=== PATIENT | female | born 1935 | race Caucasian/White ===

== ENCOUNTER 2019-03-23 15:30 | Outpatient (CLI) | payer MEDICARE, OTHER | END 2019-03-23 23:59 | disposition home or self-care (01) | LOC: MSC 15:30 | PROVIDERS: ATTEND Anesthesiology | DX: M79.7 Fibromyalgia (principal); M54.5 Low back pain; M62.830 Muscle spasm of back; M79.2 Neuralgia and neuritis, unspecified; F11.20 Opioid dependence, uncomplicated; G20 Parkinson's disease; Z79.52 Long term (current) use of systemic steroids; Z79.899 Other long term (current) drug therapy ==

== ENCOUNTER 2019-04-06 14:45 | Outpatient (CLI) | payer MEDICARE, OTHER | END 2019-04-06 23:59 | disposition home or self-care (01) | LOC: MSC 14:45 | PROVIDERS: ATTEND Anesthesiology | DX: M54.5 Low back pain (principal); M79.7 Fibromyalgia; G89.29 Other chronic pain; M62.830 Muscle spasm of back; M79.2 Neuralgia and neuritis, unspecified; F11.20 Opioid dependence, uncomplicated; Z79.84 Long term (current) use of oral hypoglycemic drugs; Z79.899 Other long term (current) drug therapy; Z90.710 Acquired absence of both cervix and uterus ==

== ENCOUNTER 2019-05-04 13:45 | Outpatient (CLI) | payer MEDICARE, OTHER | END 2019-05-04 23:59 | disposition home or self-care (01) | LOC: MSC 13:45 | PROVIDERS: ATTEND Anesthesiology | DX: M54.5 Low back pain (principal); M79.7 Fibromyalgia; M62.830 Muscle spasm of back; M79.2 Neuralgia and neuritis, unspecified; F11.20 Opioid dependence, uncomplicated; I10 Essential (primary) hypertension; E27.40 Unspecified adrenocortical insufficiency; Z79.899 Other long term (current) drug therapy ==

== ENCOUNTER 2019-05-30 16:26 | Inpatient (IN) | payer MEDICARE, OTHER ==
[~2019-05-30] VITALS: Ht 165.1 cm; Wt 55.5 kg
--- NOTE | 2019-05-30 06:48 | NUR ---
MS YAZMIN NOTES RECEIVED PATIENT AWAKE IN BED WITH NO DISTRESS NOTED. CALL LIGHT WITHIN REACH. SON AT BEDSIDE. PATIENT NOTED WITH GENERALIZED BODY PAIN, PRN NORCO 5/325 GIVEN. WILL CONTINUE TO MONITOR FOR EFFECTIVENESS. PERIPHERAL LINE INTACT AND PATENT. SKIN ASSESSMENT AND PICTURES TAKEN. VITALS WNL. BED IN LOW LOCK SETTING. BED ALARM ON AND FUNCTIONING PROPERLY. ROOM FREE OF CLUTTER AND BELONGINGS KEPT NEAR BEDSIDE. WILL CONTINUE TO MONITOR. Addendum: 05/31/19 at 0654 by FLORES BELLE RN ERROR ENTRY
--- NOTE | 2019-05-30 16:45 | NUR ---
"BIB son to waiting area and left. Pt states"this is nothing new. Pain"+rash on RLE" pt aaox4, -sob, nadn oted, vss, pending md tinsley
--- NOTE | 2019-05-30 17:24 | NUR ---
CALLED NURSING SUP FOR MED/SURG BED.
--- NOTE | 2019-05-30 17:25 | NUR ---
PAGED [facility].
[2019-05-30] MEDS ORDERED: MORPHINE SULFATE INJ 2 MG/ML DISP.SYRIN IV ONE (17:30)
[2019-05-30] MEDS ORDERED: IV NS 0.9% 1,000 ML BAG IV ONE (17:30)
[2019-05-30] MEDS ORDERED: PIPERACILLIN /TAZOBACTAM 3.375 G in IV D5W 50 ML IV ONE (17:30)
[2019-05-30] MEDS ORDERED: ONDANSETRON HCL/PF 4 MG/2 ML VIAL IVP ONE (17:30)
[2019-05-30] MEDS ORDERED: VANCOMYCIN 1 GM in IV D5W 250 ML IV ONE (17:30)
[2019-05-30 17:31] LABS: BASOPHILS # (AUTO) 0.1 /CMM (0.0-0.2); BASOPHILS % (AUTO) 1.3 % (0.0-2.0); EOSINOPHILS % (AUTO) 0.6 % (0.0-6.0); HEMATOCRIT 38 % (33-45); HEMOGLOBIN 12.2 g/dL (11.5-14.8); LYMPHOCYTES % (AUTO) 13.3 % (20.0-44.0); MEAN CORPUSCULAR HGB CONC 32 g/dl (31.0-36.0); MEAN CORPUSCULAR VOLUME 77 fL (82-100); MONOCYTES # (AUTO) 0.6 /CMM (0.1-1.30); MONOCYTES % (AUTO) 8.2 % (2.0-12.0); NEUTROPHILS # (AUTO) 5.9 /CMM (1.8-8.9); NEUTROPHILS % (AUTO) 76.6 % (43.0-81.0); PLATELET COUNT (AUTO) 195 /CMM (150-450); WHITE BLOOD COUNT (AUTO) 7.7 K/uL (4.3-11.0)
[2019-05-30] MEDS ORDERED: ALPR0.5T8 PO (17:38)
[2019-05-30] MEDS ORDERED: ONDA8TAB12 PO (17:38)
[2019-05-30] MEDS ORDERED: HYDR-3802 PO (17:38)
[2019-05-30] MEDS ORDERED: DOCU-270 PO (17:38)
[2019-05-30] MEDS ORDERED: CARB1TAB24 PO (17:38)
[2019-05-30] MEDS ORDERED: SENN-175 PO (17:38)
[2019-05-30] MEDS ORDERED: AMLO5TAB9 PO (17:38)
[2019-05-30] MEDS ORDERED: NALO25TA PO (17:38)
[2019-05-30] MEDS ORDERED: HYDR-3973 PO (17:38)
[2019-05-30] MEDS ORDERED: CLON0.1T PO (17:38)
[2019-05-30] MEDS ORDERED: OMEP40CA13 PO (17:38)
[2019-05-30] MEDS ORDERED: GABA600T12 PO (17:38)
[2019-05-30] MEDS ORDERED: PREG50CA64 PO (17:39)
[2019-05-30 17:43] LABS: CALCIUM, SERUM 8.7 mg/dL (8.5-10.1); CARBON DIOXIDE 29 mmol/L (21-32); CHLORIDE 100 mmol/L (98-107); CREATININE 0.8 mg/dL (0.6-1.3); GLUCOSE 109 mg/dL (74-106); POTASSIUM 4.5 mmol/L (3.5-5.1); SODIUM SERUM 136 mmol/L (136-145); UREA NITROGEN, BLOOD 21 mg/dL (7-18)
[2019-05-30 17:48] LABS: ALANINE AMINOTRANSFERASE 6 U/L (12-78); ALBUMIN 3.3 g/dL (3.4-5.0); ALKALINE PHOSPHATASE 85 U/L (46-116); ASPARTATE AMINOTRANSFERASE 17 U/L (15-37); BILIRUBIN,DIRECT 0.1 mg/dL (0.0-0.2); BILIRUBIN,TOTAL 0.3 mg/dL (0.2-1.0); TOTAL PROTEIN, SERUM 6.8 g/dL (6.4-8.2)
--- NOTE | 2019-05-30 17:49 | NUR ---
JESSICA CALLED FOR LARRY.
[2019-05-30] MEDS ORDERED: ONDANSETRON HCL/PF 4 MG/2 ML VIAL ONE (17:56)
[2019-05-30] MEDS ORDERED: MORPHINE SULFATE INJ 4 MG/ML DISP.SYRIN ONE (17:56)
[2019-05-30] MEDS ORDERED: MAG HYDROX/AL HYDROX/SIMETH 30 ML UDC PO PRN (18:00)
[2019-05-30] MEDS ORDERED: Z GUARD REMEDY 2 OZ OINT TP PRN (18:00)
[2019-05-30] MEDS ORDERED: CLONIDINE HCL 0.1 MG TABLET PO PRN (18:00)
[2019-05-30] MEDS ORDERED: ZOLPIDEM TARTRATE 5 MG TABLET PO PRN (18:00)
[2019-05-30] MEDS ORDERED: ACETAMINOPHEN 325 MG TABLET PO PRN (18:00)
--- NOTE | 2019-05-30 18:08 | NUR ---
CORRECTION PT GOING TO MED/SURG BED 327-2.
--- NOTE | 2019-05-30 18:25 | NUR ---
report given to devang li for ramiro pt will be transported to 3rd floor
[2019-05-30] MEDS ORDERED: ONDANSETRON 4 MG TAB.RAPDIS PO PRN (18:30)
[2019-05-30 18:37] LABS: APPEARANCE,URINE Clear (CLEAR); BILIRUBIN,URINE Negative (NEGATIVE); BLOOD, URINE Trace-intact Ery/uL (NEGATIVE); COLOR,URINE Yellow (YELLOW); KETONES,URINE Negative (NEGATIVE); LEUKOCYTE ESTERASE ,URINE Negative (NEGATIVE); NITRITE, URINE Negative (NEGATIVE); PROTEIN,URINE Negative (NEGATIVE); UGLUCOSE Negative (NEGATIVE); UROBILINOGEN,URINE 0.2 EU/dL (0.2)
[2019-05-30 18:44] LABS: BACTERIA,URINE Few /HPF (None Seen); RBC,URINE 0-2 /HPF (0-2); SQUAMOUS EPITHELIAL CELL,UR Few /HPF (None Seen); WBC,URINE 0-2 /HPF (0-3)
--- NOTE | 2019-05-30 18:50 | NUR ---
M/S RN NOTES PATIENT RECEIVED WITH NO ACUTE DISTRESS, WILL ENDORSE TO ONCOMING NURSE FOR ADMISSION.
[2019-05-30 20:00] VITALS: BP 147/76
[2019-05-30] MEDS ORDERED: CLINDAMYCIN IV RTU IN D5W 900 MG/50 ML PIGGYBACK IV SCH (20:00)
--- NOTE | 2019-05-30 20:00 | NUR ---
MS RN NOTES RECEIVED PATIENT AWAKE IN BED WITH NO DISTRESS NOTED. CALL LIGHT WITHIN REACH. SON AT BEDSIDE. PATIENT NOTED WITH GENERALIZED BODY PAIN, PRN NORCO 5/325 GIVEN. WILL CONTINUE TO MONITOR FOR EFFECTIVENESS. PERIPHERAL LINE INTACT AND PATENT. SKIN ASSESSMENT AND PICTURES TAKEN. VITALS WNL. BED IN LOW LOCK SETTING. BED ALARM ON AND FUNCTIONING PROPERLY. ROOM FREE OF CLUTTER AND BELONGINGS KEPT NEAR BEDSIDE. WILL CONTINUE TO MONITOR.
[2019-05-30] MEDS: PREGABALIN 25 MG CAPSULE PO SCH (21:32)
[2019-05-30] MEDS: SENNOSIDES 8.6 MG TABLET PO SCH (21:33)
[2019-05-30] MEDS: GABAPENTIN 300 MG CAPSULE PO SCH (21:33)
[2019-05-30] MEDS: HYDROCODONE/APAP 5/325MG 1 EACH TABLET PO PRN (21:33)
[2019-05-30] MEDS: CLINDAMYCIN 900 MG in IV D5W 50 ML IV SCH (21:34)
[2019-05-30] MEDS: ALPRAZOLAM 0.5 MG TABLET PO PRN (23:04)
[2019-05-31] MEDS: HYDROCODONE/APAP 5/325MG 1 EACH TABLET PO PRN ×5 (03:00→23:49)
[2019-05-31] MEDS: CLINDAMYCIN 900 MG in IV D5W 50 ML IV SCH ×3 (05:20→21:34)
--- NOTE | 2019-05-31 06:47 | NUR ---
MS RN NOTES PATIENT ASLEEP IN BED WITH NO DISTRESS NOTED. CALL LIGHT WITHIN REACH. ALL DUE MEDS GIVEN ORDERED WITH NO ASE. NO FURTHER C/O PAIN OR DISCOMFORT. PERIPHERAL LINE INTACT AND PATENT. BED IN LOW LOCK SETTING. ALL BELONGINGS NEAR BEDSIDE. WILL ENDORSE TO ONCOMING SHIFT.
[2019-05-31 07:00] VITALS: BP 136/79
--- NOTE | 2019-05-31 07:26 | NUR ---
RN OPENING NOTE PT WAS RECEIVED ASLEEP IN BED AT LOWEST AND LOCKED POSITION WITH SIDE RAILS UP X2, PER NIGHT RN PT IS A/O X4, BREATHING EVEN AND UNLABORED ON RA WITH NO S/S OF ANY DISTRESS OR PAIN AT THIS TIME, NOTED TO HAVE SOME SUPRAPUBIC REDNESS WITH SWELLING, IV IS PATENT AND INTACT, SAFETY PRECAUTIONS IN PLACE, CALL LIGHT WITHIN REACH, WILL MONITOR PT ACCORDINGLY
[2019-05-31 07:57] LABS: CALCIUM, SERUM 8.1 mg/dL (8.5-10.1); CREATININE 0.7 mg/dL (0.6-1.3); MAGNESIUM 1.9 mg/dL (1.8-2.4); PHOSPHORUS 4.8 mg/dL (2.5-4.9); POTASSIUM 3.8 mmol/L (3.5-5.1)
[2019-05-31] MEDS: GABAPENTIN 300 MG CAPSULE PO SCH ×3 (08:10→16:18)
[2019-05-31] MEDS: PREGABALIN 25 MG CAPSULE PO SCH ×2 (08:10→16:18)
[2019-05-31] MEDS: AMLODIPINE BESYLATE 5 MG TABLET PO SCH (08:11)
[2019-05-31] MEDS: DOCUSATE SODIUM 100 MG CAPSULE PO SCH ×2 (08:11→16:18)
[2019-05-31] MEDS: HYDROCORTISONE 5 MG TABLET PO SCH ×2 (08:11→16:18)
[2019-05-31] MEDS: CARBIDOPA/LEVODOPA 25/250 MG 1 UDTAB PO SCH ×3 (08:11→16:18)
[2019-05-31] MEDS: PANTOPRAZOLE 40 MG TABLET.DR PO SCH (08:11)
[2019-05-31 08:23] LABS: BASOPHILS % (AUTO) 0.2 % (0.0-2.0); EOSINOPHILS % (AUTO) 1.1 % (0.0-6.0); HEMATOCRIT 35 % (33-45); HEMOGLOBIN 11.2 g/dL (11.5-14.8); LYMPHOCYTES # (AUTO) 0.9 /CMM (0.8-4.8); MEAN CORPUSCULAR HGB CONC 32 g/dl (31.0-36.0); MEAN CORPUSCULAR VOLUME 77 fL (82-100); MONOCYTES # (AUTO) 0.5 /CMM (0.1-1.30); NEUTROPHILS % (AUTO) 76.7 % (43.0-81.0); PLATELET COUNT (AUTO) 178 /CMM (150-450); RED BLOOD CELL COUNT(AUTO) 4.56 MIL/uL (4.0-5.2); WHITE BLOOD COUNT (AUTO) 6.5 K/uL (4.3-11.0)
[2019-05-31] MEDS ORDERED: NALOXEGOL OXALATE PO SCH (09:00)
[2019-05-31] MEDS ORDERED: HYDROCORTISONE 10 MG TABLET PO SCH (09:00)
--- NOTE | 2019-05-31 10:58 | NUR ---
RN NOTE SON CALLED REGARDING HOME MED [facility] THAT NEEDS TO BE BROUGHT, PER SON HIS MOTHER ONLY TAKES THAT MED NEEDED AND THAT HE WILL SEE IF HE CAN FIND IT AND BRING IT IN. PHARMACY INFORMED
[2019-05-31] MEDS: ONDANSETRON HCL/PF 4 MG/2 ML VIAL IVP PRN (15:25)
[2019-05-31 16:09] VITALS: BP 133/75
--- NOTE | 2019-05-31 18:39 | NUR ---
RN CLOSING NOTE PT IN BED AT LOWEST AND LOCKED POSITION WITH SIDE RAILS UP X2, A/O X4 BREATHING EVEN AND UNLABORED ON RA WITH NO S/S OF ANY DISTRESS OR PAIN, IV IS PATENT AND INTACT, SAFETY PRECAUTIONS IN PLACE, CALL LIGHT WITHIN REACH, ALL NEEDS ATTENDED TO, WILL ENDORSE TO NIGHT RN FOR BRITTNEE.
[2019-05-31 20:00] VITALS: BP 119/69
[2019-05-31] MEDS: SENNOSIDES 8.6 MG TABLET PO SCH (20:09)
[2019-05-31] MEDS: ALPRAZOLAM 0.5 MG TABLET PO PRN (20:09)
--- NOTE | 2019-05-31 20:16 | NUR ---
recieved pt in room in bed calm; Pt c/o of pain 03/27; Pt begins to moan; Cary 5-325 Prn 1 tab given pt tolerates well; Pt becomes very upset and begins to yell uncontrollable about pain medicine given late; No schedule med due at this time; To help patient calm down; water given; jello given; Xanax 0.5mg PRN Anxiety given; Senokot 2 tabs 17.6 mg scheduled med for HS given Patient has reported decrease in pain level cannot specify number Son at bedside
[2019-05-31] MEDS: MAGNESIUM HYDROXIDE 30 ML UDC PO PRN (22:57)
[2019-06-01] MEDS: CLINDAMYCIN 900 MG in IV D5W 50 ML IV SCH ×3 (04:08→20:26)
[2019-06-01] MEDS: HYDROCODONE/APAP 5/325MG 1 EACH TABLET PO PRN ×2 (04:13→08:38)
[2019-06-01] MEDS: ALPRAZOLAM 0.5 MG TABLET PO PRN ×3 (04:44→20:35)
[2019-06-01 07:12] LABS: BASOPHILS % (AUTO) 0.4 % (0.0-2.0); EOSINOPHILS % (AUTO) 1.7 % (0.0-6.0); HEMATOCRIT 36 % (33-45); HEMOGLOBIN 11.5 g/dL (11.5-14.8); LYMPHOCYTES # (AUTO) 1.4 /CMM (0.8-4.8); LYMPHOCYTES % (AUTO) 29.8 % (20.0-44.0); MEAN CORPUSCULAR HGB CONC 32 g/dl (31.0-36.0); MEAN CORPUSCULAR VOLUME 76 fL (82-100); MONOCYTES # (AUTO) 0.5 /CMM (0.1-1.30); MONOCYTES % (AUTO) 9.9 % (2.0-12.0); NEUTROPHILS # (AUTO) 2.8 /CMM (1.8-8.9); NEUTROPHILS % (AUTO) 58.2 % (43.0-81.0); PLATELET COUNT (AUTO) 165 /CMM (150-450); RED BLOOD CELL COUNT(AUTO) 4.67 MIL/uL (4.0-5.2); WHITE BLOOD COUNT (AUTO) 4.8 K/uL (4.3-11.0)
[2019-06-01 07:20] LABS: CALCIUM, SERUM 8.1 mg/dL (8.5-10.1); CREATININE 0.8 mg/dL (0.6-1.3); POTASSIUM 4.2 mmol/L (3.5-5.1)
[2019-06-01 08:00] VITALS: BP 152/76
--- NOTE | 2019-06-01 08:00 | NUR ---
SUPPLY MANAGER OPENING NOTE PT WAS RECEIVED AWAKE IN BED AT LOWEST AND LOCKED POSITION WITH SIDE RAILS UP X2, PT IS A/O X4, BREATHING EVEN AND UNLABORED ON RA WITH NO S/S OF ANY DISTRESS WITH C/O SUPRAPUBIC PAIN -PAIN MGT PRN GIVEN.NOTED TO HAVE SOME SUPRAPUBIC REDNESS WITH SWELLING, IV IS PATENT AND INTACT, SAFETY PRECAUTIONS IN PLACE, CALL LIGHT WITHIN REACH, WILL MONITOR PT ACCORDINGLY
[2019-06-01] MEDS: DOCUSATE SODIUM 100 MG CAPSULE PO SCH ×2 (08:38→17:24)
[2019-06-01] MEDS: PREGABALIN 25 MG CAPSULE PO SCH ×2 (08:38→17:24)
[2019-06-01] MEDS: AMLODIPINE BESYLATE 5 MG TABLET PO SCH (08:39)
[2019-06-01] MEDS: CARBIDOPA/LEVODOPA 25/250 MG 1 UDTAB PO SCH ×3 (08:39→17:23)
[2019-06-01] MEDS: GABAPENTIN 300 MG CAPSULE PO SCH ×3 (08:39→17:24)
[2019-06-01] MEDS: PANTOPRAZOLE 40 MG TABLET.DR PO SCH (08:41)
[2019-06-01] MEDS: HYDROCORTISONE 5 MG TABLET PO SCH ×2 (08:43→17:32)
[2019-06-01] MEDS ORDERED: BISACODYL SUPP (10 MG) 10 MG/SUPP.RECT SUPP.RECT RC PRN (10:00)
--- NOTE | 2019-06-01 11:21 | NUR ---
WOUND CARE CONSULT: PT PRESENTS WITH RED TENDER RAISED AREA TO PUBIC REGION, PRESENT ON ADMISSION. DEFER TO MD FOR POSSIBLE SURGICAL CONSULT. RECOMMENDATIONS MADE FOR SKIN PROTECTION. [id number] WITH NURSING STAFF. WILL SEE PRN. CURRENT DARCI SCORE IS 18. Addendum: 06/01/19 at 1122 by NANCY ANAYA WNDNU Amended: Links added.
[2019-06-01] MEDS: MORPHINE SULFATE INJ 2 MG/ML DISP.SYRIN IV PRN ×2 (11:56→15:36)
[2019-06-01] MEDS ORDERED: MINERAL OIL 133 ML (PYXIS) 1 EA ENEMA RC ONE (12:00)
[2019-06-01] MEDS ORDERED: LIDOCAINE 1%-EPI 1:100,000 50 ML VIAL IJ STA (14:07)
--- NOTE | 2019-06-01 15:28 | NUR ---
SERIAL DEBRIDEMENT AND I&D OF SUPRAPUBIC WOUND DONE AT THE BEDSIDE BY HUMBERTOWOUND PA OF DR DONAVON ALEXANDER. WILL ADMINISTER PAIN MGT PRN.
[2019-06-01 16:00] VITALS: BP 136/76
[2019-06-01] MEDS: HYDROCODONE/APAP 10/325MG 1 EA TABLET PO PRN (17:25)
[2019-06-01] MEDS: MAGNESIUM HYDROXIDE 30 ML UDC PO PRN (17:32)
--- NOTE | 2019-06-01 19:19 | NUR ---
PT RESTING IN BED DENYING ANY PAIN OR DISTRESS.PAIN MGT EFFECTIVE.FLEET OIL ENEMA GIVEN DOESN'T HAVE ANY RESULT.MILK OF MAGNESIA GIVEN WELL.ENCOURAGED PT TO AMBULATE ALONG THE HALLWAY AND INCREASE FLUDI INTAKE.WARM PRUNE JUICE 2 CUPS WAS TAKEN IN THE MORNING.PT HAS POOR INTAKE BUT EATS OFTEN IN SMALL AMOUNTS.WILL MONITOR.WILL ENDORSE TO NIGHT NURSE CARE.CALL LIGHT PLACED WITHIN REACH.
--- NOTE | 2019-06-01 19:59 | NUR ---
MS/RN OPENING NOTES RECEIVED PATIENT IN BED, AWAKE, ALERT X3, ABLE TO VERBALZIE NEEDS, REQUIRE ASSISTANCE IN ALL NEEDS PATIENT JUST HAD I & D DONE. PATIENT REPORTED OR OBSERVE NO PAIN, LAST PAIN MEDICATION GIVEN 1745 BY AM RN, PATIETN REQUESTED FOR FOOD AND SNACKS, AND HAD BED BAN, WOUND DRESSING INTACT. WILL MONITOR PATIENT PAIN AND ANY CONCERN. BED LOCK, CALL LIGHTS WITHIN REACH. OFFERED AND PROVIDED FLUIDS.
[2019-06-01 20:00] VITALS: BP 115/72
[2019-06-01 20:26] VITALS: BP 115/72
--- NOTE | 2019-06-01 20:35 | NUR ---
MS/RN NOTES PATIENT REQUESTED TO HELP HER RELAX WITH NEEDED XANAX PO 0.5 MG PO. PATIENT REPORTED SHE WILL BE ABLE TO EAT AND FEEL BETTER WITH MEDICATION AND THAT SON WILL BE COMING FOR A VISIT. WILL MONITOR AND ADMINISTER MEDICATION TOLERATED.
[2019-06-01] MEDS: SENNOSIDES 8.6 MG TABLET PO SCH (21:23)
[2019-06-02] MEDS: MORPHINE SULFATE INJ 2 MG/ML DISP.SYRIN IV PRN ×2 (03:52→14:26)
--- NOTE | 2019-06-02 04:00 | NUR ---
MS/RN NOTES PATIENT WOKE UP FROM SLEEP, REPORTED PAIN OF 8/10 GENERALIZED IN WHOLE BODY, MORPHINE 2MG IVP ADMINISTERED, WOUND CARE PROVIDED, ASSISTED IN REPOSITION AND CHANGING WILL MONITOR TRLIEF OF PAIN.
[2019-06-02] MEDS: CLINDAMYCIN 900 MG in IV D5W 50 ML IV SCH ×3 (04:03→20:14)
[2019-06-02] MEDS: HYDROCODONE/APAP 10/325MG 1 EA TABLET PO PRN ×3 (05:44→15:35)
--- NOTE | 2019-06-02 05:47 | NUR ---
MS/RN NOTES PATIENT REPORTED PAIN IN HEAD, MOANING AND GRIMACE, MOUTH HURTING, REQUESTED FOR PAIN ,MEDICATION 02/24. NOCO 10-325 ,G PO GIVEN AND ABLE TO SWALLOW PILL. WILL MONITOR.
--- NOTE | 2019-06-02 06:30 | NUR ---
324-1 MS/RN NOTES PATIENT ABLE TO SLEEP DURING THE NIGHT, WITH NEEDED MEDICATION XANAX. PATIENT ABLE TO VERBALIZE NEEDS, PAIN MANAGEMENT MONITORING.WILL ENDORSE TO AM RN FOR BRITTNEE. BWD LOCKED, CALL LIGHTS WITHIN REACH.
[2019-06-02 08:00] VITALS: BP 99/65
--- NOTE | 2019-06-02 08:00 | NUR ---
MS YAZMIN AM NOTES PT WAS RECEIVED AWAKE IN BED AT LOWEST AND LOCKED POSITION WITH SIDE RAILS UP X2, PT IS A/O X4, BREATHING EVEN AND UNLABORED ON RA WITH NO S/S OF ANY DISTRESS WITH C/O SUPRAPUBIC PAIN -PAIN MGT PRN GIVEN.S/P SERIAL DEBRIDEMENT AND I&D 06/01/19 WITH DRESSING DRY AND INTACT.SUPRAPUBIC WOUND HAS MILD REDNESS AND MILD SWELLING NOTED.ON IV ATB THERAPY. IV IS PATENT AND INTACT, PT MADE SOFT BOWEL MOVEMENT IN THE BEDPAN. GOOD PERICARE RENDERED.SAFETY PRECAUTIONS IN PLACE, CALL LIGHT WITHIN REACH, WILL MONITOR PT ACCORDINGLY
[2019-06-02] MEDS: PREGABALIN 25 MG CAPSULE PO SCH ×2 (09:08→16:18)
[2019-06-02] MEDS: CARBIDOPA/LEVODOPA 25/250 MG 1 UDTAB PO SCH ×3 (09:08→16:17)
[2019-06-02] MEDS: DOCUSATE SODIUM 100 MG CAPSULE PO SCH ×2 (09:10→16:18)
[2019-06-02] MEDS: AMLODIPINE BESYLATE 5 MG TABLET PO SCH (09:10)
[2019-06-02] MEDS: HYDROCORTISONE 5 MG TABLET PO SCH ×2 (09:14→16:18)
[2019-06-02] MEDS: GABAPENTIN 300 MG CAPSULE PO SCH ×3 (09:15→16:17)
[2019-06-02] MEDS: PANTOPRAZOLE 40 MG TABLET.DR PO SCH (09:15)
[2019-06-02 12:00] VITALS: BP 103/74
--- NOTE | 2019-06-02 12:00 | NUR ---
patient is alert oriented x4. pain mgmt effective, no signs of distress. BP 103/74 HR 75
[2019-06-02] MEDS: ONDANSETRON HCL/PF 4 MG/2 ML VIAL IVP PRN (14:46)
[2019-06-02] MEDS: ALPRAZOLAM 0.5 MG TABLET PO PRN (15:35)
[2019-06-02 16:00] VITALS: BP 145/73
--- NOTE | 2019-06-02 19:11 | NUR ---
PT RESTING IN BED DENYING ANY PAIN OR DISTRESS.CALL LIGHT PLACED WITHIN REACH.
--- NOTE | 2019-06-02 19:56 | NUR ---
MS/RN OPENING NOTES RECEIVED PATIENT IN BED, AWAKE, ALERT, BEING ASSISTED WITH A WALKER TO BATHROOM, ABLE TO VERBALIZE NEEDS, AND REPORTED WANTED TO EAT SOME SNACKS, PROVIDED FOOD. ABLE TO TOLERATE FLUIDS AND FOOD. DENIES PAIN AT THIS TIME, SELF MOTIVATED. BED LOCKED, CALL LIGHTS WITHIN REACH, WILL MONITOR.
[2019-06-02 20:00] VITALS: BP_SYST 120; BP_SYST 96; BP_DIAS 51; BP_DIAS 92
--- NOTE | 2019-06-02 20:05 | NUR ---
MS/RN NOTES] PATIENT WOUND SITE ON SUPRAPUBIC WITH REDNESS AND SWELLING, DRESSING INTACT,RESPIRATIONS EVEN AND UNLABORED, NO PAIN REPORTED, REPORTED RELIEF.WILL MONITOR.
[2019-06-02] MEDS: SENNOSIDES 8.6 MG TABLET PO SCH (22:06)
--- NOTE | 2019-06-03 02:39 | NUR ---
MS/RN NOTES MD LANTIGUA WAS INFORMED REGARDING WOUND CULTURE RECEIVED RESULT COMMUNICATED WITH FEW POSITIVE GRAM, COCCI AND RARE WBC SEEM MADE AWARE THAT PATIENT IS ON ANTIBIOTIC THERAPY.
[2019-06-03] MEDS: CLINDAMYCIN 900 MG in IV D5W 50 ML IV SCH (04:00)
[2019-06-03] MEDS: HYDROCODONE/APAP 10/325MG 1 EA TABLET PO PRN ×3 (04:11→13:39)
--- NOTE | 2019-06-03 06:16 | NUR ---
324-1 MS/RN NOTES PATIENT ABLE TO SLEEP DURING THE NIGHT, PAIN MANAGEMENT MONITORED, RESPIRATIONS EVEN AND UNLABORED , ALERT, ORIENTED X3. BED LOCKED, CALL LKGHTS WITHIN REACH. PROVIDED SNACKS. WILL ENDORSE TO AM RN FOR BRITTNEE. MID ABDOMEN DRESSING CHANGE, OBSERVE REDNESS AND SWELLING ON SUPRAPUBIC AREAS.
[2019-06-03] MEDS: PANTOPRAZOLE 40 MG TABLET.DR PO SCH (06:53)
[2019-06-03] MEDS: MORPHINE SULFATE INJ 2 MG/ML DISP.SYRIN IV PRN (06:55)
--- NOTE | 2019-06-03 06:58 | NUR ---
MS/RN NOTES PATIENT REPORTED PAIN WITH GUARDING AND GRIMACE, 8/10 PAIN REPORTED IN NECK ARM AND WILL MONITOR FOR RELIEF.
[2019-06-03 08:00] VITALS: BP 151/92
[2019-06-03] MEDS: GABAPENTIN 300 MG CAPSULE PO SCH ×2 (08:54→13:39)
[2019-06-03] MEDS: DOCUSATE SODIUM 100 MG CAPSULE PO SCH (08:54)
[2019-06-03] MEDS: HYDROCORTISONE 5 MG TABLET PO SCH (08:54)
[2019-06-03 08:55] VITALS: BP 151/92
[2019-06-03] MEDS: CARBIDOPA/LEVODOPA 25/250 MG 1 UDTAB PO SCH ×2 (08:55→13:39)
[2019-06-03] MEDS: AMLODIPINE BESYLATE 5 MG TABLET PO SCH (08:55)
[2019-06-03] MEDS: ALPRAZOLAM 0.5 MG TABLET PO PRN (08:56)
[2019-06-03] MEDS: PREGABALIN 25 MG CAPSULE PO SCH (08:56)
--- NOTE | 2019-06-03 13:48 | NUR ---
DISCHARGE PT TO [facility] VIA AMBULANCE WITH STABLE V/S.IV H/L TO RT AC REMAINS INTACT PER REQUEST OF YAZMIN HARDIN OF [facility].REPORT CALLED IN TO YAZMIN HARDIN OF [facility].WOUND DRESSING CHANGE DONE TO SUPRAPUBIC WOUND.SEEN BY NUZHAT PAUL.DENIES ANY PAIN OR DISTRESS.WILL CONTINUE CLINDAMYCIN PO QID FOR 7 DAYS IN THE SNF.INSTRUCTED LASHAWN TO DO WOUND TX 3X A DAY.
[2019-06-06] MEDS ORDERED: HYDR-4384 PO (11:09)
== END 2019-06-03 13:40 | DRG 572 ==
LOC: ER 16:33 → MED 18:12
PROVIDERS: ADMIT Family Medicine; ATTEND Nurse Practitioner Acute Care
PROC: 0JBC0ZZ Excision of Pelvic Region Subcutaneous Tissue and Fascia, Open Approach (ICD-10-PCS; principal; 2019-06-01)
DX: L03.818 Cellulitis of other sites (principal); I10 Essential (primary) hypertension; G89.29 Other chronic pain; G20 Parkinson's disease; Z87.11 Personal history of peptic ulcer disease; M19.90 Unspecified osteoarthritis, unspecified site; Z79.899 Other long term (current) drug therapy; Z83.3 Family history of diabetes mellitus
CPT/HCPCS: 36415; 71045-TC; 80048-TC; 80061-TC; 80076-TC; 81000-TC; 83605-TC; 83735-TC; 84100-TC; 84484-TC; 85025-TC; 85730-TC; 87040-TC; 87070-TC; 87081-TC; 87086-TC; 97116-TC; 97530-TC; A6253; A6407; G0378; J2270; J2405; J2543; J3370; J3490; J7050; J7060

== ENCOUNTER 2019-06-03 21:24 | Emergency (ER) | payer MEDICARE, OTHER ==
[~2019-06-03] VITALS: Ht 162.6 cm; Wt 78.9 kg
[~2019-06-03 21:24] MED LIST: ALPR0.5T8 PO; AMLO5TAB9 PO; CARB1TAB24 PO; CLON0.1T PO; DOCU-270 PO; GABA600T12 PO; HYDR-3802 PO; HYDR-3973 PO; NALO25TA PO; OMEP40CA37 PO; ONDA8TAB12 PO; PREG50CA64 PO; SENN-175 PO
--- NOTE | 2019-06-03 21:35 | NUR ---
PT BIBPA. PT C/O SUPRAPUBIC CELLULITIS PAIN AND R SIDED BREAST PAIN. REDNESS NOTED ON PUBIC AREA. PT RECENTLY ADMITTED AND DISCHARGED FROM [facility] ON 06/03/19. PT IS AWAKE, PLACED ON CONTINIOUS MONITOR AND PULSE OX, WILL CONTINUE TO MONITOR.
[2019-06-03] MEDS ORDERED: HYDROCODONE/APAP 5/325MG 1 EACH TABLET ONE (22:55)
[2019-06-03] MEDS: HYDROCODONE/APAP 5/325MG 1 EACH TABLET PO ONE (23:00)
--- NOTE | 2019-06-03 23:03 | NUR ---
TRANSPORTATION: [facility] 2 HOUR ETA ([id number]), TRIP #[id number]
--- NOTE | 2019-06-04 00:30 | NUR ---
PT RETURNING BACK TO FACILITY.
[2019-06-04 01:56] VITALS: BP 158/76
[2019-06-06] MEDS ORDERED: HYDR-4384 PO (11:09)
== END 2019-06-04 00:30 | disposition home or self-care (01) ==
LOC: ER 21:24
DX: G89.29 Other chronic pain (principal); I10 Essential (primary) hypertension; K21.9 Gastro-esophageal reflux disease without esophagitis; Z79.899 Other long term (current) drug therapy

== ENCOUNTER 2019-06-04 01:40 | Inpatient (IN) | payer MEDICARE, OTHER ==
[~2019-06-04] VITALS: Ht 165.1 cm; Wt 60.3 kg
--- NOTE | 2019-06-04 01:47 | NUR ---
"PT BIBPA. C/O "BP WAS HIGH AT FACILITY" FACILITY SENDING PT BACK FOR HIGH BP" pt alert, awake, pt on monitor, vss ,nad noted, pending md tinsley
[2019-06-04] MEDS ORDERED: HYDROCODONE/APAP 5/325MG 1 EACH TABLET PO PRN (02:00)
[2019-06-04] MEDS ORDERED: GABAPENTIN 100 MG CAPSULE PO SCH (02:00)
[2019-06-04] MEDS ORDERED: ACETAMINOPHEN 325 MG TABLET PO PRN (02:00)
[2019-06-04] MEDS ORDERED: ZOLPIDEM TARTRATE 5 MG TABLET PO PRN (02:00)
[2019-06-04] MEDS ORDERED: CLONIDINE HCL 0.1 MG TABLET PO PRN (02:00)
[2019-06-04] MEDS ORDERED: MAG HYDROX/AL HYDROX/SIMETH 30 ML UDC PO PRN (02:00)
[2019-06-04] MEDS ORDERED: Z GUARD REMEDY 2 OZ OINT TP PRN (02:00)
[2019-06-04] MEDS ORDERED: MAGNESIUM HYDROXIDE 30 ML UDC PO PRN (02:00)
[2019-06-04] MEDS ORDERED: ONDANSETRON HCL/PF 4 MG/2 ML VIAL IVP PRN (02:00)
--- NOTE | 2019-06-04 02:09 | NUR ---
REPORT GIVEN TO ALEXEY ARCE
[2019-06-04] MEDS ORDERED: GABAPENTIN 300 MG CAPSULE PO SCH (02:29)
--- NOTE | 2019-06-04 02:40 | NUR ---
Pt received into care from ED via [facility]. Pt is awake, A&O x 4, c/o pain to neck and back. Pt given 2 tabs of Cascade 5/535. Pt also c/o anxiety and requested xanax and was given. Skin assessment completed. Open wound noted to mid pubic area measuring width 0.4 cm and length 1 1/2 cm. Wound care consult ordered. Dressing D&I, with scant serosanguineous drainage. Pt has medication at bedside in a bag. 1 bottle of sinemet and 1 bottle of hydrocortisone tablets. Pt refused to have RN take it to pharmacy. RN informed pt not to take medications at bedside. Pt verbalized understanding.
[2019-06-04 04:00] VITALS: BP 160/86
[2019-06-04] MEDS ORDERED: HYDROCODONE/APAP 5/325MG 1 EACH TABLET PO ONE (04:00)
[2019-06-04] MEDS: GABAPENTIN 300 MG CAPSULE PO SCH ×3 (05:05→21:24)
[2019-06-04] MEDS: CLINDAMYCIN 900 MG in IV NS 0.9% 50 ML IV SCH ×3 (05:34→20:32)
[2019-06-04] MEDS: ALPRAZOLAM 0.5 MG TABLET PO PRN ×2 (05:42→23:53)
[2019-06-04 07:18] LABS: BASOPHILS % (AUTO) 0.4 % (0.0-2.0); EOSINOPHILS % (AUTO) 1.8 % (0.0-6.0); HEMATOCRIT 40 % (33-45); LYMPHOCYTES # (AUTO) 2.4 /CMM (0.8-4.8); LYMPHOCYTES % (AUTO) 42.3 % (20.0-44.0); MEAN CORPUSCULAR HGB CONC 32 g/dl (31.0-36.0); MEAN CORPUSCULAR VOLUME 76 fL (82-100); MONOCYTES # (AUTO) 0.5 /CMM (0.1-1.30); NEUTROPHILS # (AUTO) 2.7 /CMM (1.8-8.9); NEUTROPHILS % (AUTO) 46.5 % (43.0-81.0); PLATELET COUNT (AUTO) 227 /CMM (150-450); WHITE BLOOD COUNT (AUTO) 5.7 K/uL (4.3-11.0)
[2019-06-04] MEDS ORDERED: OMEPRAZOLE 20 MG CAPSULE.DR PO SCH (07:30)
--- NOTE | 2019-06-04 07:35 | NUR ---
M/S RN NOTES PATIENT RESTING, LYING IN BED, NO RESPIRATORY DISTRESS, NO C/O PAIN AT THIS TIME. PATIENT'S IV ACCESS SITE INTACT AND PATENT. PATIENT'S NEEDS ATTENDED. BED ON LOWEST LOCKED POSITION. CALL LIGHT WITHIN REACH. WILL CONTINUE TO MONITOR.
[2019-06-04 07:45] LABS: CALCIUM, SERUM 8.9 mg/dL (8.5-10.1); MAGNESIUM 2.4 mg/dL (1.8-2.4); PHOSPHORUS 4.7 mg/dL (2.5-4.9)
[2019-06-04 08:00] VITALS: BP 140/77
[2019-06-04] MEDS ORDERED: PANTOPRAZOLE 40 MG TABLET.DR PO SCH (08:16)
[2019-06-04] MEDS: DOCUSATE SODIUM 100 MG CAPSULE PO SCH ×2 (09:01→16:58)
[2019-06-04] MEDS: PREGABALIN 25 MG CAPSULE PO SCH ×2 (09:02→16:58)
[2019-06-04] MEDS: CARBIDOPA/LEVODOPA 25/250 MG 1 UDTAB PO SCH ×3 (09:02→16:59)
[2019-06-04] MEDS: AMLODIPINE BESYLATE 5 MG TABLET PO SCH (09:02)
[2019-06-04] MEDS: HYDROCORTISONE 5 MG TABLET PO SCH ×2 (09:03→16:58)
[2019-06-04] MEDS ORDERED: MOVANTIK 25MG PO SCH (09:15)
[2019-06-04] MEDS: HYDROCODONE/APAP 10/325MG 1 EA TABLET PO PRN ×3 (09:40→19:55)
--- NOTE | 2019-06-04 11:33 | NUR ---
M/S RN NOTES DEBRIDEMENT DONE BY NUZHAT PAUL. SIGNED CONSENT IN CHART. PATIENT TOLERATED PROCEDURE WELL.
--- NOTE | 2019-06-04 11:50 | NUR ---
WOUND CARE CONSULT: PT FOLLOWED BY SURGICAL TEAM FOR WOUND CARE. DEFER TO SURGICAL TEAM FOR WOUND TREATMENT PLAN. WILL SEE PRN. CURRENT DARCI SCORE IS 16. Addendum: 06/04/19 at 1152 by NANCY ANAYA WNDNU DISCUSSED SKIN PROTECTION WITH NURSING STAFF.
--- NOTE | 2019-06-04 18:50 | NUR ---
M/S RN NOTES PATIENT AWAKE IN BED IN NO RESPIRATORY DISTRESS. PATIENT ASKING FOR NORCO, TOLD PATIENT THAT IT'S NO DUE TIL 1650, PATIENT'S PAIN AT 7/10, OFFERED TYLENOL BUT PATIENT REFUSED. TV TURNED ON FOR DISTRACTION. SKIN WARM TO TOUCH. BED ON LOWEST LOCKED POSITION. WILL ENDORSE TO ONCOMING SHIFT.
--- NOTE | 2019-06-04 19:05 | NUR ---
RN MS OPENING NOTES RECEIVED PATIENT IN BED AWAKE ALERT AND ORIENTED X3-4, RESPIRATIONS EVEN AND UNLABORED WITH EQUAL RISE AND FALL OF CHEST, IV SITE TO RIGHT HAND #24G INTACT AND PATENT, NO REDNESS, NO INFILTRATION PRESENT, ORIENTED TO STAFF AND CALL LIGHT AND KEPT WITHIN REACH, SAFETY PRECAUTIONS IN PLACE, LOW BED AND LOCKED , BED ALARM IN PLACE, FLUIDS AND TOILETING OFFERED, ALL NEEDS ATTENDED AT THIS TIME WILL CONTINUE TO MONITOR AND ATTEND TO NEEDS. AT THIS TIME NO COMPLAINTS OF PAIN.
--- NOTE | 2019-06-04 19:55 | NUR ---
RN MS NOTES PATIENT "COMPLAIN OF PAIN TO GENERALIZED BODY , BACK AND LEGS STATES 05/27" REQUESTING FOR NORCO. VS WNL 128/77,77,19,98.1,97%RA. NORCO 10/325 PRN GIVEN ORDERED. WILL CONTINUE TO MONITOR FOR EFFECTIVENESS.
[2019-06-04 20:00] VITALS: BP 128/77
[2019-06-04 20:06] VITALS: BP 128/77
[2019-06-04] MEDS ORDERED: SENNOSIDES 8.6 MG TABLET PO SCH (22:00)
--- NOTE | 2019-06-04 23:53 | NUR ---
RN MS NOTES PATIENT STATES " SHE GETS ANXIOUS REQUESTING FOR XANAX" XANAX PRN GIVEN ORDERED, WILL CONTINUE TO MONITOR FOR EFFECTIVENESS.
[2019-06-05] MEDS: CLINDAMYCIN 900 MG in IV NS 0.9% 50 ML IV SCH ×2 (04:36→12:29)
[2019-06-05] MEDS: HYDROCODONE/APAP 10/325MG 1 EA TABLET PO PRN ×3 (04:49→15:04)
--- NOTE | 2019-06-05 04:49 | NUR ---
RN MS NOTES PATIENT COMPLAINT OF PAIN TO GENERALIZED AREAS, BACK AND LEGS AND NECK, 02/24 REQUESTING FOR NORCO VS WNL 132/92,86,18,97% RA. PRN NORCO 10/325 GIVEN ORDERED, WILL CONTINUE TO MONITOR FOR EFFECTIVENESS.
[2019-06-05] MEDS: GABAPENTIN 300 MG CAPSULE PO SCH ×2 (05:34→12:30)
--- NOTE | 2019-06-05 06:42 | NUR ---
RN MS CLOSING NOTES PATIENT IN BED AWAKE ALERT AND ORIENTED X3-4, RESPIRATIONS EVEN AND UNLABORED WITH EQUAL RISE AND FALL OF CHEST, IV SITE TO RIGHT HAND #24G INTACT AND PATENT, NO REDNESS, NO INFILTRATION PRESENT, CALL LIGHT KEPT WITHIN REACH, SAFETY PRECAUTIONS IN PLACE, LOW BED AND LOCKED , BED ALARM IN PLACE, FLUIDS AND TOILETING OFFERED, HAD X2 BM AND X4 VOIDS SKIN ASSESSED SACRAL SKIN ANS HEELS REMAIN INTACT, NO REDNESS, OFFERED TO PLACE PILLOWS UNDER HEELS PATIENT REFUSED, JELLO GIVEN TOLERATED WELL ALL NEEDS ATTENDED AT THIS TIME WILL CONTINUE TO MONITOR AND ENDORSE TO NEXT SHIFT, ALL DUE MEDS AND ABX GIVEN WITH NO ADVERSE REACTIONS NOTED. AT THIS TIME NO COMPLAINTS OF PAIN.
--- NOTE | 2019-06-05 07:10 | NUR ---
MS RN OPENING NOTES RECEIVED PT IN BED, ASLEEP, EASILY AROUSED, A/O X4. PT TOLERATING RA, WITH NO ACUTE RESPIRATORY DISTRESS. PT DENIES PAIN OR ANY DISCOMFORT. PT ALSO DENIES ANY CONCERNS OR QUESTIONS AT THIS TIME. PIV TO R HAND G24 SL, FLUSHED WITH NS, INTACT AND OPERATIONAL. PT KEPT COMFORTABLE. CALL LIGHT KEPT WITHIN REACH. BED IN LOWEST, LOCKED POSITION WITH SR X3. WILL CONTINUE PLAN OF CARE.
[2019-06-05 08:00] VITALS: BP 160/88
[2019-06-05] MEDS: DOCUSATE SODIUM 100 MG CAPSULE PO SCH ×2 (08:47→16:01)
[2019-06-05] MEDS: PREGABALIN 25 MG CAPSULE PO SCH ×2 (08:47→16:01)
[2019-06-05] MEDS: AMLODIPINE BESYLATE 5 MG TABLET PO SCH (08:47)
[2019-06-05] MEDS: CARBIDOPA/LEVODOPA 25/250 MG 1 UDTAB PO SCH ×3 (08:47→16:01)
[2019-06-05] MEDS: HYDROCORTISONE 5 MG TABLET PO SCH ×2 (08:53→16:02)
--- NOTE | 2019-06-05 11:10 | NUR ---
MS RN NOTES CALLED SON VIA PHONE, NO ANSWER, LEFT A MESSAGE REGARDING DISCHARGE AND PT PREFERS TO BE HOME AND A NURSE TO COME OVER TO TAKE CARE OF WOUND CARE. ABDIRASHID/IVON MADE AWARE.
[2019-06-05] MEDS: ALPRAZOLAM 0.5 MG TABLET PO PRN (13:50)
[2019-06-05 16:00] VITALS: BP 128/68
--- NOTE | 2019-06-05 16:30 | NUR ---
MS MEAT SEAFOOD ASSOCIATE NOTES PT TO DISCHARGE TO HOME PER PT'S PREFERENCE. PT ACCOMPANIED AND PICKED UP BY [facility]. PT A/O X3-4, TOLERATING RA, WITH NO ACUTE RESPIRATORY DISTRESS NOTED. PT DENIES PAIN OR OR DISCOMFORT AT THE TIME OF DISCHARGE. WOUND TREATMENT PROVIDED TO SUPRAPUBIC AREA AND PICTURE TAKEN WITH PT'S CONSENT TO FILE IN THE CHART. CM ARRANGED [facility] FOR WOUND CARE, INFORMATION PROVIDED TO PT. PIV TO R HAND 24G, APPLIED DRY DRESSING. REVIEWED AND SIGNED DISCHARGE INSTRUCTIONS AND INVENTORY LIST BY PT, SON PRESENT AT BEDSIDE AND WITNESSED ALL BELONGINGS WITH THE PT. ALL NEEDS AND CARE ATTENDED. PRESCRIPTIONS GIVEN TO PT AND DARRON/MARIA FERNANDA. VS STABLE. PT ESCORTED TO THE LOBBY BY PLASTICS ENGINEERING TEACHER VIA WHEELCHAIR. PT LEFT THE UNIT AT 1620. CN/IVON AND HOSPITALIST/DRONE PILOT/NN AWARE OF DISCHARGE.
[2019-06-06] MEDS ORDERED: HYDR-4384 PO (11:09)
== END 2019-06-05 16:15 | disposition home health service (06) | DRG 572 ==
LOC: ER 01:42 → MED 02:18
PROVIDERS: ADMIT Nurse Practitioner Acute Care; ATTEND Nurse Practitioner Acute Care
PROC: 0JBC0ZZ Excision of Pelvic Region Subcutaneous Tissue and Fascia, Open Approach (ICD-10-PCS; principal; 2019-06-04)
DX: L03.818 Cellulitis of other sites (principal); I10 Essential (primary) hypertension; G89.29 Other chronic pain; G20 Parkinson's disease; K21.9 Gastro-esophageal reflux disease without esophagitis; Z79.899 Other long term (current) drug therapy; Z87.11 Personal history of peptic ulcer disease; M19.90 Unspecified osteoarthritis, unspecified site; L02.818 Cutaneous abscess of other sites; F41.9 Anxiety disorder, unspecified; E78.5 Hyperlipidemia, unspecified
CPT/HCPCS: 36415; 80048-TC; 83735-TC; 84100-TC; 85025-TC; 87081-TC; A4216; A6407; G0378; J2405; J3490

== ENCOUNTER → 2019-06-22 | Outpatient (CLI) | payer MEDICARE, OTHER ==
[~2019-06-22] MED LIST changes: +HYDR-4384 PO; +OMEP40CA13 PO; -OMEP40CA37 PO
[2019-06-22 13:55] VITALS: BP 88/51
== END | disposition home or self-care (01) ==
LOC: MSC 13:55
PROVIDERS: ATTEND Anesthesiology
DX: M79.7 Fibromyalgia (principal); M79.2 Neuralgia and neuritis, unspecified; M62.830 Muscle spasm of back; F11.20 Opioid dependence, uncomplicated

== ENCOUNTER → 2019-07-20 | Outpatient (CLI) | payer MEDICARE, OTHER ==
[~2019-07-20] MED LIST changes: -ONDA8TAB12 PO; +ONDA8TAB65 PO
== END | disposition home or self-care (01) ==
LOC: MSC 14:10
PROVIDERS: ATTEND Anesthesiology
DX: M54.5 Low back pain (principal); M62.830 Muscle spasm of back; M79.7 Fibromyalgia; M79.2 Neuralgia and neuritis, unspecified; F11.20 Opioid dependence, uncomplicated; Z79.899 Other long term (current) drug therapy

== ENCOUNTER → 2019-08-24 | Outpatient (CLI) | payer MEDICARE, OTHER | END | disposition home or self-care (01) | LOC: MSC 14:00 | PROVIDERS: ATTEND Anesthesiology | DX: M54.5 Low back pain (principal); M62.830 Muscle spasm of back; M79.2 Neuralgia and neuritis, unspecified; M79.7 Fibromyalgia; F11.20 Opioid dependence, uncomplicated; G20 Parkinson's disease; Z79.899 Other long term (current) drug therapy ==

== ENCOUNTER → 2019-09-21 | Outpatient (CLI) | payer MEDICARE, OTHER | END | disposition home or self-care (01) | LOC: MSC 14:45 | PROVIDERS: ATTEND Anesthesiology | DX: M54.5 Low back pain (principal); M62.830 Muscle spasm of back; M79.7 Fibromyalgia; M79.2 Neuralgia and neuritis, unspecified; F11.20 Opioid dependence, uncomplicated; I10 Essential (primary) hypertension; E27.40 Unspecified adrenocortical insufficiency; G20 Parkinson's disease; M17.9 Osteoarthritis of knee, unspecified; Z79.899 Other long term (current) drug therapy ==

== ENCOUNTER → 2019-10-20 | Outpatient (CLI) | payer MEDICARE, OTHER | END | disposition home or self-care (01) | LOC: MSC 14:20 | PROVIDERS: ATTEND Anesthesiology | DX: M54.5 Low back pain (principal); M62.830 Muscle spasm of back; M79.7 Fibromyalgia; M79.2 Neuralgia and neuritis, unspecified; F11.20 Opioid dependence, uncomplicated; I10 Essential (primary) hypertension; E27.40 Unspecified adrenocortical insufficiency; Z79.899 Other long term (current) drug therapy ==

== ENCOUNTER 2020-03-09 12:36 | Emergency (ER) | payer MEDICARE, OTHER ==
[~2020-03-09] VITALS: Ht 165.1 cm; Wt 51.7 kg
[~2020-03-09 12:36] MED LIST changes: -HYDR-3802 PO; +HYDR-4316 PO
--- NOTE | 2020-03-09 12:50 | NUR ---
PATIENT WAS LEFT BY SON IN WAITING ROOM. C/O "WEAK, DIZZY AND BODY ACHES." RESP IS EVEN AND UNLABORED WITH NAD NOTED. SKIN IS WARM AND DRY. PLACED ON THE MONITOR. AWAITING MD FOR EVAL.
--- NOTE | 2020-03-09 12:50 | NUR ---
DR JOHNSON AT BEDSIDE FOR EVAL
[2020-03-09] MEDS ORDERED: IV NS 0.9% 500 ML BAG IV ONE (13:00)
[2020-03-09 13:21] LABS: BASOPHILS % (AUTO) 0.7 % (0.0-2.0); EOSINOPHILS % (AUTO) 2.7 % (0.0-6.0); HEMATOCRIT 40 % (33-45); HEMOGLOBIN 12.6 g/dL (11.5-14.8); LYMPHOCYTES # (AUTO) 1.9 /CMM (0.8-4.8); LYMPHOCYTES % (AUTO) 44.6 % (20.0-44.0); MEAN CORPUSCULAR HGB CONC 32 g/dl (31.0-36.0); MEAN CORPUSCULAR VOLUME 74 fL (82-100); MONOCYTES # (AUTO) 0.5 /CMM (0.1-1.30); NEUTROPHILS # (AUTO) 1.7 /CMM (1.8-8.9); PLATELET COUNT (AUTO) 203 /CMM (150-450); RED BLOOD CELL COUNT(AUTO) 5.36 MIL/uL (4.0-5.2); WHITE BLOOD COUNT (AUTO) 4.2 K/uL (4.3-11.0)
[2020-03-09 13:30] LABS: CALCIUM, SERUM 8.4 mg/dL (8.5-10.1); CARBON DIOXIDE 28 mmol/L (21-32); CHLORIDE 101 mmol/L (98-107); CREATININE 0.8 mg/dL (0.6-1.3); GLUCOSE 93 mg/dL (74-106); POTASSIUM 3.6 mmol/L (3.5-5.1); SODIUM SERUM 132 mmol/L (136-145); UREA NITROGEN, BLOOD 16 mg/dL (7-18)
[2020-03-09 13:44] LABS: ALBUMIN 3.3 g/dL (3.4-5.0); ALKALINE PHOSPHATASE 62 U/L (46-116); ASPARTATE AMINOTRANSFERASE 14 U/L (15-37); BILIRUBIN,DIRECT 0.1 mg/dL (0.0-0.2); BILIRUBIN,TOTAL 0.4 mg/dL (0.2-1.0); TOTAL PROTEIN, SERUM 6.3 g/dL (6.4-8.2)
--- NOTE | 2020-03-09 13:45 | NUR ---
URINE SAMPLE COLLECTED ANS ENT TO LAB
[2020-03-09 13:47] LABS: APPEARANCE,URINE Clear (CLEAR); BILIRUBIN,URINE Negative (NEGATIVE); BLOOD, URINE Negative Ery/uL (NEGATIVE); COLOR,URINE Yellow (YELLOW); KETONES,URINE Negative (NEGATIVE); LEUKOCYTE ESTERASE ,URINE Negative (NEGATIVE); NITRITE, URINE Negative (NEGATIVE); PROTEIN,URINE Negative (NEGATIVE); UGLUCOSE Negative (NEGATIVE); UROBILINOGEN,URINE 0.2 EU/dL (0.2)
[2020-03-09 13:54] LABS: ALANINE AMINOTRANSFERASE < 6 U/L (12-78)
--- NOTE | 2020-03-09 14:05 | NUR ---
SPOKED TO ABHIJIT JOHNSON'S SON FOR DISCHARGED ETA 20MINS.
[2020-03-09] MEDS ORDERED: ACETAMINOPHEN W/ CODEINE#3 1 EA TABLET ONE (14:17)
--- NOTE | 2020-03-09 14:25 | NUR ---
IV removed. Catheter intact and site benign. Pressure and 4x4 applied to site. No bleeding noted.
[2020-03-09] MEDS ORDERED: ACETAMINOPHEN W/ CODEINE#3 1 EA TABLET PO ONE (14:30)
--- NOTE | 2020-03-09 14:34 | NUR ---
Patient discharged to home with son in stable condition. Written and verbal after care instructions given. Patient and son verbalizes understanding of instruction. Wheeled out via wheelchair to waiting room where son is waiting.
[2020-03-09 14:38] VITALS: BP 142/80
[2020-03-09 15:28] LABS: EOSINOPHILS % (MANUAL) 1 % (0-4); LYMPHOCYTES % (MANUAL) 54 % (16-48); MONOCYTES % (MANUAL) 5 % (0-11.0); NEUTROPHILS % (MANUAL) 37 (42-76); REACTIVE LYMPHOCYTES 3 % (0-0)
== END 2020-03-09 14:34 | disposition home or self-care (01) ==
LOC: ER 12:36
DX: R42 Dizziness and giddiness (principal); I10 Essential (primary) hypertension; K21.9 Gastro-esophageal reflux disease without esophagitis; G89.29 Other chronic pain; Z79.899 Other long term (current) drug therapy
CPT/HCPCS: 36415; 71045; 80048; 80076; 81001; 83605; 84145; 84484; 85025; 85730; 87040 ×2; 87086; 93005; 99285; J7040; 81000-TC

== ENCOUNTER 2020-03-12 12:11 | Emergency (ER) | payer MEDICARE, OTHER ==
[~2020-03-12] VITALS: Ht 162.6 cm; Wt 50.8 kg
[2020-03-12] MEDS ORDERED: ONDANSETRON HCL/PF 4 MG/2 ML VIAL ONE (12:26)
[2020-03-12] MEDS ORDERED: MORPHINE SULFATE INJ 4 MG/ML DISP.SYRIN ONE ×2 (12:27→16:16)
[2020-03-12] MEDS ORDERED: IV NS 0.9% 500 ML BAG IV ONE (12:30)
[2020-03-12] MEDS ORDERED: ONDANSETRON HCL/PF 4 MG/2 ML VIAL IVP ONE (12:30)
[2020-03-12] MEDS ORDERED: MORPHINE SULFATE INJ 2 MG/ML DISP.SYRIN IV ONE ×2 (12:30→16:30)
[2020-03-12] MEDS ORDERED: CELE100C98 PO (12:32)
[2020-03-12] MEDS ORDERED: HYDR-4384 PO (12:32)
[2020-03-12] MEDS ORDERED: ERGO500014 MT (12:32)
[2020-03-12] MEDS ORDERED: FLUO10CA27 PO (12:32)
[2020-03-12] MEDS ORDERED: TRAZ-252 PO (12:32)
--- NOTE | 2020-03-12 12:37 | NUR ---
c/o abd pain since this morning 7/10 pain scale. PT AAOX3, RR EVEN & UNLABORED. DENIES CP, SOB, DIZZINESS, N/V/D AT THIS TIME. PT SEEN & EVAL'D BY DR. ALMODOVAR. PLACED ON SUPERVISOR ELECTRIC, SR. MEDICATED PER ERMD ORDER, WILL CONT TO MONITOR.
[2020-03-12] MEDS ORDERED: HYDROMORPHONE 1 MG/1 ML DISP.SYRIN ONE (12:41)
--- NOTE | 2020-03-12 12:47 | NUR ---
PT STILL C/O SEVERE ABD PAIN, 05/27. MEDICATED PER ERMD ORDER. PT TO CT VIA ROBERTO.
[2020-03-12 12:58] LABS: BASOPHILS % (AUTO) 0.3 % (0.0-2.0); EOSINOPHILS % (AUTO) 0.8 % (0.0-6.0); HEMATOCRIT 40 % (33-45); HEMOGLOBIN 12.8 g/dL (11.5-14.8); LYMPHOCYTES # (AUTO) 2.1 /CMM (0.8-4.8); LYMPHOCYTES % (AUTO) 33.3 % (20.0-44.0); MEAN CORPUSCULAR HGB CONC 32 g/dl (31.0-36.0); MEAN CORPUSCULAR VOLUME 73 fL (82-100); MONOCYTES # (AUTO) 0.6 /CMM (0.1-1.30); NEUTROPHILS # (AUTO) 3.6 /CMM (1.8-8.9); NEUTROPHILS % (AUTO) 56.6 % (43.0-81.0); PLATELET COUNT (AUTO) 209 /CMM (150-450); RED BLOOD CELL COUNT(AUTO) 5.49 MIL/uL (4.0-5.2); WHITE BLOOD COUNT (AUTO) 6.3 K/uL (4.3-11.0)
[2020-03-12] MEDS ORDERED: HYDROMORPHONE INJ 0.5 MG/0.5 ML SYRINGE IV ONE (13:00)
--- NOTE | 2020-03-12 13:06 | NUR ---
PT BACK FROM CT
[2020-03-12 13:12] LABS: CALCIUM, SERUM 8.9 mg/dL (8.5-10.1); CREATININE 0.9 mg/dL (0.6-1.3); POTASSIUM 3.8 mmol/L (3.5-5.1)
[2020-03-12 13:21] LABS: ALBUMIN 3.7 g/dL (3.4-5.0); BILIRUBIN,DIRECT 0.2 mg/dL (0.0-0.2); BILIRUBIN,TOTAL 0.6 mg/dL (0.2-1.0); TOTAL PROTEIN, SERUM 6.7 g/dL (6.4-8.2)
--- NOTE | 2020-03-12 14:30 | NUR ---
PT STILL C/O ABD PAIN. ERMD AWARE.
[2020-03-12 17:23] VITALS: BP 147/82
--- NOTE | 2020-03-12 17:23 | NUR ---
Patient discharged to home in stable condition. Written and verbal after care instructions given. Patient verbalizes understanding of instruction. IV removed. Catheter intact and site benign. Pressure and 4x4 applied to site. No bleeding noted.
== END 2020-03-12 17:23 | disposition home or self-care (01) ==
LOC: ER 12:15
DX: R10.9 Unspecified abdominal pain (principal); G89.29 Other chronic pain; I10 Essential (primary) hypertension; K21.9 Gastro-esophageal reflux disease without esophagitis; Z79.899 Other long term (current) drug therapy
CPT/HCPCS: 36415; 74176; 80048; 80076; 83690; 85025; 96374; 96375; 96376; 99285; J1170; J2270 ×2; J2405; J7040

== ENCOUNTER 2020-04-12 14:59 | Emergency (ER) | payer MEDICARE, OTHER ==
[~2020-04-12] VITALS: Ht 160 cm; Wt 48.5 kg
[~2020-04-12 14:59] MED LIST changes: -ALPR0.5T8 PO; +CELE100C98 PO; +ERGO500014 MT; +FLUO10CA27 PO; -PREG50CA64 PO; +TRAZ-252 PO
--- NOTE | 2020-04-12 15:35 | NUR ---
BIB SON FROM HOME C/O "BOIL ON MY VAGINA", TO ER BED 10, HOOKED TO MONITOR, CHANGED TO HOSP GOWN, WARM BLANKET PROVIDED, PATIENT AAO x 4. DR RECINOS AT BEDSIDE.
[2020-04-12] MEDS ORDERED: LIDOCAINE VISCOUS 2% UD 15 ML UDC ONE (15:40)
[2020-04-12] MEDS ORDERED: LIDOCAINE VISCOUS 2% UD 15 ML UDC MM ONE (16:00)
[2020-04-12 17:01] LABS: APPEARANCE,URINE CLEAR (CLEAR); BILIRUBIN,URINE NEGATIVE (NEGATIVE); BLOOD, URINE NEGATIVE Ery/uL (NEGATIVE); COLOR,URINE YELLOW (YELLOW); KETONES,URINE NEGATIVE (NEGATIVE); LEUKOCYTE ESTERASE ,URINE MODERATE (NEGATIVE); NITRITE, URINE NEGATIVE (NEGATIVE); PROTEIN,URINE NEGATIVE (NEGATIVE); UGLUCOSE NEGATIVE (NEGATIVE); UROBILINOGEN,URINE 0.2 EU/dL (0.2)
--- NOTE | 2020-04-12 17:22 | NUR ---
Patient discharged to home in stable condition. Written and verbal after care instructions given. Patient verbalizes understanding of instruction.
[2020-04-12 17:33] VITALS: BP 114/62
== END 2020-04-12 17:34 | disposition home or self-care (01) ==
LOC: ER 14:59
DX: N76.6 Ulceration of vulva (principal); I10 Essential (primary) hypertension; K21.9 Gastro-esophageal reflux disease without esophagitis; G89.29 Other chronic pain; M54.9 Dorsalgia, unspecified; G20 Parkinson's disease; Z79.899 Other long term (current) drug therapy
CPT/HCPCS: 81000-TC

== ENCOUNTER 2020-04-17 19:53 | Emergency (ER) | payer MEDICARE, OTHER ==
[~2020-04-17] VITALS: Ht 160 cm; Wt 48.5 kg
[2020-04-17 20:00] VITALS: BP 147/88
[2020-04-17] MEDS ORDERED: MUPIROCIN OINT 2% 22 GM TUBE ONE (20:38)
[2020-04-17] MEDS ORDERED: SULFAMETH/TRIMETH 800/160 MG 1 UDTAB TABLET ONE (20:39)
[2020-04-17] MEDS ORDERED: HYDROCODONE/APAP 5/325MG TABLET ONE (20:39)
[2020-04-17] MEDS ORDERED: MUPIROCIN OINT 2% 22 GM TUBE TP ONE (21:00)
[2020-04-17] MEDS ORDERED: HYDROCODONE/APAP 5/325MG TABLET PO ONE (21:00)
[2020-04-17] MEDS ORDERED: SULFAMETH/TRIMETH 800/160 MG 1 UDTAB TABLET PO ONE (21:00)
--- NOTE | 2020-04-17 21:12 | NUR ---
REFUSED TO SIGN
[2020-04-17] MEDS ORDERED: LORAZEPAM 0.5 MG TABLET ONE (21:24)
[2020-04-17] MEDS ORDERED: LORAZEPAM 0.5 MG TABLET PO ONE (21:30)
--- NOTE | 2020-04-17 21:30 | NUR ---
Patient discharged to home in stable condition. Rx and Written and verbal after care instructions given. to the son who verbalizes understanding of instruction. pt was assisted to the son's car via wc
== END 2020-04-17 21:30 | disposition home or self-care (01) ==
LOC: ER 19:55
DX: N76.4 Abscess of vulva (principal); G20 Parkinson's disease; F41.9 Anxiety disorder, unspecified; I10 Essential (primary) hypertension; K21.9 Gastro-esophageal reflux disease without esophagitis; G89.29 Other chronic pain; M54.9 Dorsalgia, unspecified; Z79.899 Other long term (current) drug therapy
CPT/HCPCS: 99284; A6403

== ENCOUNTER 2020-05-04 17:26 | Emergency (ER) | payer MEDICARE, OTHER ==
[~2020-05-04] VITALS: Ht 165.1 cm; Wt 47.6 kg
--- NOTE | 2020-05-04 17:35 | NUR ---
FOUND SITTING IN WAITING ROOM,C/O GENERALIZED BODY PAIN, TEMPORARY RELIEF WITH NORCO THIS MORNING. TO ER BED 10, HOOKED TO BP CUFF AND POX, CHANGED TO HOSP GOWN, WARM BLANKET PROVIDED, PATIENT AAO x 2, BREATHING EVEN AND UNLABORED, NOT IN RESPIRATORY DISTRESS. AWAITING MD SINGLETARY.
--- NOTE | 2020-05-04 17:47 | NUR ---
DR LIEBERMAN AT BEDSIDE
[2020-05-04] MEDS ORDERED: MAG HYDROX/AL HYDROX/SIMETH 30 ML UDC ONE (17:56)
[2020-05-04] MEDS ORDERED: ONDANSETRON HCL/PF 4 MG/2 ML VIAL ONE (17:56)
[2020-05-04] MEDS ORDERED: FAMOTIDINE/PF INJ 20 MG/2 ML VIAL IV ONE (17:56)
[2020-05-04] MEDS ORDERED: LIDOCAINE VISCOUS 2% UD 15 ML UDC ONE (17:56)
[2020-05-04 18:09] LABS: BASOPHILS % (AUTO) 0.3 % (0.0-2.0); EOSINOPHILS % (AUTO) 1.4 % (0.0-6.0); HEMATOCRIT 41 % (33-45); LYMPHOCYTES # (AUTO) 1.4 /CMM (0.8-4.8); MEAN CORPUSCULAR HGB CONC 32 g/dl (31.0-36.0); MEAN CORPUSCULAR VOLUME 75 fL (82-100); MONOCYTES # (AUTO) 0.5 /CMM (0.1-1.30); MONOCYTES % (AUTO) 8.6 % (2.0-12.0); NEUTROPHILS # (AUTO) 3.8 /CMM (1.8-8.9); NEUTROPHILS % (AUTO) 65.7 % (43.0-81.0); PLATELET COUNT (AUTO) 250 /CMM (150-450); RED BLOOD CELL COUNT(AUTO) 5.48 MIL/uL (4.0-5.2); WHITE BLOOD COUNT (AUTO) 5.8 K/uL (4.3-11.0)
[2020-05-04] MEDS: FAMOTIDINE/PF INJ 20 MG/2 ML VIAL IV ONE (18:14)
[2020-05-04] MEDS: LIDOCAINE VISCOUS 2% UD 15 ML UDC MM ONE (18:14)
[2020-05-04] MEDS: ONDANSETRON HCL/PF 4 MG/2 ML VIAL IVP ONE (18:14)
[2020-05-04] MEDS: IV NS 0.9% 1,000 ML BAG IV ONE (18:14)
[2020-05-04] MEDS: MAG HYDROX/AL HYDROX/SIMETH 30 ML UDC PO ONE (18:15)
--- NOTE | 2020-05-04 18:16 | NUR ---
PICKED UP BY RURAL SERVICE ENGINEER [facility]IA [facility] FOR CT SCAN.
[2020-05-04 18:21] LABS: ALANINE AMINOTRANSFERASE 7 U/L (12-78); ALBUMIN 4.1 g/dL (3.4-5.0); ALKALINE PHOSPHATASE 59 U/L (46-116); ASPARTATE AMINOTRANSFERASE 15 U/L (15-37); BILIRUBIN,DIRECT 0.2 mg/dL (0.0-0.2); BILIRUBIN,TOTAL 0.6 mg/dL (0.2-1.0); CALCIUM, SERUM 9.1 mg/dL (8.5-10.1); CARBON DIOXIDE 27 mmol/L (21-32); CHLORIDE 100 mmol/L (98-107); CREATININE 1.4 mg/dL (0.6-1.3); GLUCOSE 100 mg/dL (74-106); LIPASE 100 U/L (73-393); POTASSIUM 4.3 mmol/L (3.5-5.1); SODIUM SERUM 134 mmol/L (136-145); TOTAL PROTEIN, SERUM 6.9 g/dL (6.4-8.2); UREA NITROGEN, BLOOD 30 mg/dL (7-18)
--- NOTE | 2020-05-04 19:10 | NUR ---
REPORT GIVEN TO DANNY ARCE FOR BRITTNEE
--- NOTE | 2020-05-04 19:23 | NUR ---
PT AAOX4, VSS, RESPIRATIONS EVEN AND UNLABORED ON RA W/ NAD NOTED. PT CONNECTED TO THE MONITOR AND POX. WILL CONTINUE TO MONITOR.
--- NOTE | 2020-05-04 20:17 | NUR ---
FREIGHT BRAKEMAN ETA 20 MINS
[2020-05-04 20:52] VITALS: BP 142/84
--- NOTE | 2020-05-04 20:52 | NUR ---
Patient discharged to home in stable condition. Written and verbal after care instructions given. Patient verbalizes understanding of instruction.IV removed. Catheter intact and site benign. Pressure and 4x4 applied to site. No bleeding noted.
== END 2020-05-04 20:53 | disposition home or self-care (01) ==
LOC: ER 17:31
DX: R10.13 Epigastric pain (principal); R10.11 Right upper quadrant pain; R10.12 Left upper quadrant pain; K62.89 Other specified diseases of anus and rectum; R11.0 Nausea; K59.00 Constipation, unspecified; I10 Essential (primary) hypertension; G20 Parkinson's disease; K21.9 Gastro-esophageal reflux disease without esophagitis; G89.29 Other chronic pain; Z79.899 Other long term (current) drug therapy
CPT/HCPCS: 36415; 74176; 80048; 80076; 83690; 84484; 85025; 93005; 96361; 96374; 96375; 99285; J2405; J3490; J7030

== ENCOUNTER 2020-11-25 12:51 | Inpatient (IN) | payer MEDICARE, OTHER ==
[~2020-11-25] VITALS: Ht 165.1 cm; Wt 45.0 kg
[~2020-11-25 12:51] MED LIST changes: +AMLO-212 PO; -AMLO5TAB9 PO; -FLUO10CA27 PO; +FLUO10CA29 PO; -NALO25TA PO; +NALO25TA4 PO
--- NOTE | 2020-11-25 12:51 | NUR ---
PT BIB SON C/O GENERALIZED ITCHING AND BURNING. PT IS AAOX3, NOT IN RESPIRATORY DISTRESS, HOOKED TO DIRECTOR OF RESEARCH, KEPT RESTED AND COMFORTABLE. WILL CONTINUE TO MONITOR.
[2020-11-25] MEDS ORDERED: MIRT-121 PO (13:08)
[2020-11-25] MEDS ORDERED: TOPI25TA49 PO (13:08)
--- NOTE | 2020-11-25 13:27 | NUR ---
SEEN AND EXAMINED BY .
[2020-11-25] MEDS ORDERED: MORPHINE SULFATE INJ 2 MG/ML DISP.SYRIN IV ONE ×3 (13:30→18:30)
[2020-11-25] MEDS ORDERED: predniSONE 50 MG TABLET PO ONE (13:30)
[2020-11-25] MEDS ORDERED: diphenhydrAMINE HCL 50 MG/ML VIAL IV ONE (13:30)
[2020-11-25] MEDS ORDERED: IV NS 0.9% 1,000 ML BAG IV ONE (13:30)
--- NOTE | 2020-11-25 13:40 | NUR ---
IV LINE ESTABLISHED BLOOD DRAWN AND SENT TO LAB.
[2020-11-25] MEDS ORDERED: predniSONE 20 MG TABLET ONE (13:46)
[2020-11-25] MEDS ORDERED: MORPHINE SULFATE INJ 4 MG/ML DISP.SYRIN ONE ×3 (13:46→18:15)
[2020-11-25] MEDS ORDERED: diphenhydrAMINE HCL 50 MG/ML VIAL ONE (13:46)
[2020-11-25] MEDS ORDERED: predniSONE 10 MG TABLET ONE (13:46)
--- NOTE | 2020-11-25 13:48 | NUR ---
LYE MACHINE OPERATOR AT BEDSIDE FOR XRAY.
[2020-11-25 13:52] LABS: BASOPHILS % (AUTO) 0.8 % (0.0-2.0); EOSINOPHILS % (AUTO) 1.6 % (0.0-6.0); HEMATOCRIT 38 % (33-45); LYMPHOCYTES # (AUTO) 1.7 /CMM (0.8-4.8); LYMPHOCYTES % (AUTO) 33.5 % (20.0-44.0); MEAN CORPUSCULAR HGB CONC 32 g/dl (31.0-36.0); MEAN CORPUSCULAR VOLUME 75 fL (82-100); MONOCYTES # (AUTO) 0.5 /CMM (0.1-1.30); MONOCYTES % (AUTO) 9.3 % (2.0-12.0); NEUTROPHILS # (AUTO) 2.7 /CMM (1.8-8.9); NEUTROPHILS % (AUTO) 54.8 % (43.0-81.0); PLATELET COUNT (AUTO) 189 /CMM (150-450); RED BLOOD CELL COUNT(AUTO) 5.01 MIL/uL (4.0-5.2)
--- NOTE | 2020-11-25 14:15 | NUR ---
URINE SPECIMEN COLLECTED AND SENT TO LAB.
[2020-11-25 14:19] LABS: ALBUMIN 3.1 g/dL (3.4-5.0); BILIRUBIN,DIRECT 0.1 mg/dL (0.0-0.2); BILIRUBIN,TOTAL 0.3 mg/dL (0.2-1.0); CALCIUM, SERUM 7.9 mg/dL (8.5-10.1); CREATININE 0.8 mg/dL (0.6-1.3); POTASSIUM 3.5 mmol/L (3.5-5.1); TOTAL PROTEIN, SERUM 6.1 g/dL (6.4-8.2)
[2020-11-25 14:25] LABS: BILIRUBIN,URINE NEGATIVE (NEGATIVE); COLOR,URINE YELLOW (YELLOW); LEUKOCYTE ESTERASE ,URINE SMALL (NEGATIVE); NITRITE, URINE NEGATIVE (NEGATIVE); PROTEIN,URINE NEGATIVE (NEGATIVE); UGLUCOSE NEGATIVE (NEGATIVE); UROBILINOGEN,URINE 0.2 EU/dL (0.2)
[2020-11-25 14:56] LABS: BACTERIA,URINE 3+ /HPF (None Seen); SQUAMOUS EPITHELIAL CELL,UR 0-2 /HPF (None Seen)
[2020-11-25] MEDS ORDERED: CEFTRIAXONE 1GM BAG (ER ONLY) 1 GM/50 ML PIGGYBACK IV ONE (15:30)
[2020-11-25] MEDS ORDERED: CEFTRIAXONE 1GM BAG (ER ONLY) 50 ML IV ONE (15:44)
--- NOTE | 2020-11-25 18:03 | NUR ---
LAB CALLED PT COVID RESULT NEGATIVE.
--- NOTE | 2020-11-25 18:17 | NUR ---
PT IS WHEELED TO CT SCAN VIA [facility].
[2020-11-25] MEDS ORDERED: ONDANSETRON HCL/PF 4 MG/2 ML VIAL IVP PRN (19:00)
[2020-11-25] MEDS ORDERED: ZOLPIDEM TARTRATE 5 MG TABLET PO PRN (19:00)
[2020-11-25] MEDS ORDERED: ACETAMINOPHEN 325 MG TABLET PO PRN (19:00)
[2020-11-25] MEDS ORDERED: Z GUARD REMEDY 2 OZ OINT TP PRN (19:00)
[2020-11-25] MEDS: CELECOXIB 100 MG CAPSULE PO SCH (19:00)
--- NOTE | 2020-11-25 19:05 | NUR ---
REC'D REPORT FROM DEANNA BARNEY RN FOR BRITTNEE
--- NOTE | 2020-11-25 19:33 | NUR ---
TELE 309-4
--- NOTE | 2020-11-25 19:41 | NUR ---
ATTEMPTED TO GIVE REPORT. KEPT ON HOLD
--- NOTE | 2020-11-25 19:49 | NUR ---
GAVE REPORT TO YAZMIN GAY FOR BRITTNEE
[2020-11-25 20:00] VITALS: BP 164/65
--- NOTE | 2020-11-25 20:00 | NUR ---
MS PICK AND SHOVEL MAN NOTE RECEIVED PATIENT VIA GURNEY. TRANSFERED TO BED. NO INJURIES NOTED. A/OX4. TOLERATING ROOM AIR. RESPIRATIONS ARE EVEN AND UNLABORED. NO S/S SOB NOTED. C/O PAIN IN BLE, INFORMED HER AWAITING DOCTOR ORDERS. IN NO APPARENT DISTRESS. IV ACCESS IN LFA#18 PATENT AND SALINE LOCKED. INITIAL PHYSICAL ASSESSMENT DONE AT THIS TIME. REFUSED SKIN ASSESSMENT. HOME [facility] RESPIRATORY THERAPIST OBTAINED VITALS AND COMPLETED BELONGING LIST. BED IS LOW AND LOCKED, HOB ELEVATED IN SEMI FOWLERS, SIDE RAILS UP X2, CALL LIGHT WITHIN REACH. INFORMED ON USE. WILL CONTINUE TO MONITOR THROUGHOUT SHIFT.
[2020-11-25] MEDS ORDERED: HYDROCORTISONE 10 MG TABLET PO SCH (20:16)
[2020-11-25] MEDS: SENNOSIDES 8.6 MG TABLET PO SCH ×2 (21:12→21:29)
[2020-11-25] MEDS: CARBIDOPA/LEVODOPA 25/250 MG 1 UDTAB PO SCH (21:12)
[2020-11-25] MEDS: DOCUSATE SODIUM 100 MG CAPSULE PO SCH (21:12)
[2020-11-25] MEDS: IV NS 0.9% 1,000 ML IV PRN (21:17)
[2020-11-25] MEDS: MIRTAZAPINE 15 MG TABLET PO SCH (21:21)
[2020-11-25] MEDS: HYDROCODONE/APAP 5/325MG TABLET PO PRN (21:25)
--- NOTE | 2020-11-25 21:31 | NUR ---
MS RN NOTE PATIENT REFUSED MEDICATIONS: SENEKOT, MIRTAZIPINE, AND CELEBREX. STATES IS NOT ABLE TO TAKE CELEBREZ D/T A STOMACH ULCER. MIRTAZIPINE OPENED. WAS NOT ABLE T O RETURN TO [facility]. PLACED IN MEDICATION WASTE BIN. Addendum: 11/25/20 at 2140 by MINH LARSEN RN PROVIDED PATIENT EDUCATION ON ALL MEDICATIONS BUT CONTINUES TO REFUSE.
[2020-11-25] MEDS ORDERED: HYDROCORTISONE 5 MG TABLET ONE (22:08)
[2020-11-25 23:25] VITALS: BP 133/65
[2020-11-26] MEDS: HYDROCODONE/APAP 5/325MG TABLET PO PRN ×2 (01:39→07:41)
[2020-11-26 06:02] LABS: BASOPHILS % (AUTO) 0.2 % (0.0-2.0); HEMATOCRIT 39 % (33-45); HEMOGLOBIN 12.3 g/dL (11.5-14.8); LYMPHOCYTES # (AUTO) 0.9 /CMM (0.8-4.8); LYMPHOCYTES % (AUTO) 18.7 % (20.0-44.0); MEAN CORPUSCULAR HGB CONC 32 g/dl (31.0-36.0); MEAN CORPUSCULAR VOLUME 75 fL (82-100); MONOCYTES # (AUTO) 0.2 /CMM (0.1-1.30); MONOCYTES % (AUTO) 3.6 % (2.0-12.0); NEUTROPHILS # (AUTO) 3.6 /CMM (1.8-8.9); NEUTROPHILS % (AUTO) 77.5 % (43.0-81.0); PLATELET COUNT (AUTO) 190 /CMM (150-450); RED BLOOD CELL COUNT(AUTO) 5.17 MIL/uL (4.0-5.2); WHITE BLOOD COUNT (AUTO) 4.7 K/uL (4.3-11.0)
[2020-11-26 06:12] LABS: CHOLESTEROL 152 mg/dL (<200); HDL CHOLESTEROL 80 mg/dL (40-60); LDL 55 mg/dL (0-99); TRIGLYCERIDES 52 mg/dL (30-150)
[2020-11-26 06:16] LABS: CARBON DIOXIDE 24 mmol/L (21-32); CHLORIDE 106 mmol/L (98-107); CREATININE 0.7 mg/dL (0.6-1.3); GLUCOSE 84 mg/dL (74-106); MAGNESIUM 2.1 mg/dL (1.8-2.4); PHOSPHORUS 4.1 mg/dL (2.5-4.9); POTASSIUM 4.1 mmol/L (3.5-5.1); SODIUM SERUM 140 mmol/L (136-145); UREA NITROGEN, BLOOD 23 mg/dL (7-18)
--- NOTE | 2020-11-26 07:06 | NUR ---
MS RN CLOSING NOTE RESTING IN BED. A/OX4.NO RESP DISTRESS. C/O PAIN. NO DISTRESS. IV ACCESS IN LFA. BED REMAINS LOW AND LOCKED, HOB ELEVATED IN SEMI FOWLERS, SIDE RAILS UP X2, CALL LIGHT WITHIN REACH. WILL ENDORSE TO ONCOMING SHIFT.
[2020-11-26] MEDS: PANTOPRAZOLE 40 MG TABLET.DR PO SCH (07:40)
--- NOTE | 2020-11-26 07:50 | NUR ---
MS RN OPENING NOTE PT RECEIVED AWAKE IN BED AND RESPONSIVE. PT IS A/O X 4, VERBAL, INDONESIAN SPEAKING AND ABLE TO MAKE NEEDS KNOWN. PT C/O ACHING PAIN IN BILATERAL LEGS AND PELVIS RATED 7/10. OFFERED AND ADMINISTERED NORCO 5-325 1 TAB PO Q4H PRN AT 0741. PT IS ON ROOM AIR WITH ON S/SX OF RESPIRATORY DISTRESS OR SOB NOTED AT THIS TIME. PT'S IV ACCESS IS ON LEFT FOREARM G#18, PATENT, INTACT AND FLUSHING WELL, RUNNING NS AT 50 ML/HR WITH NO S/SX OF INFECTION, INFILTRATION OR IRRITATION. SAFETY MEASURES IN PLACE: BED IN LOWEST, LOCKED POSITION WITH BOTH UPPER SIDE RAILS UP X 2. CALL LIGHT PLACED WITHIN REACH. WILL CONTINUE TO MONITOR.
[2020-11-26 08:00] VITALS: BP 165/91
[2020-11-26] MEDS: CELECOXIB 100 MG CAPSULE PO SCH ×2 (08:23→16:11)
[2020-11-26] MEDS: DOCUSATE SODIUM 100 MG CAPSULE PO SCH ×2 (08:23→16:12)
[2020-11-26] MEDS: TOPIRAMATE 25 MG TABLET PO SCH (08:24)
[2020-11-26] MEDS: CARBIDOPA/LEVODOPA 25/250 MG 1 UDTAB PO SCH ×3 (08:24→16:12)
[2020-11-26] MEDS: GABAPENTIN 100 MG CAPSULE PO SCH ×3 (08:24→16:12)
[2020-11-26] MEDS: HYDROCORTISONE 5 MG TABLET PO SCH ×2 (08:26→16:12)
[2020-11-26] MEDS: IV NS 0.9% 1,000 ML IV PRN ×2 (08:27→16:57)
--- NOTE | 2020-11-26 08:45 | NUR ---
MS RN NOTE: MED REFUSAL, PAIN, NAUSEA, ANIXETY PT C/O OF ACHING, BURNING PAIN IN BILATERAL LEGS AND PELVIS RATED 3/10. OFFERED AND ADMINISTERED TYLENOL 650MG PO Q6H PRN AT 0829 PER PT'S REQUEST. PT ALSO C/O NAUSEA. OFFERED AND ADMINISTERED ZOFRAN 4MG/2ML IVP Q6H PRN AT 0829 PER PT'S REQUEST. PT ALSO REFUSED CELECOXIB DUE AT 0900. EXPLAINED RISKS AND BENEFITS, OFFERED X 3, STILL REFUSED. PT CONTINUED SCREAMING AND YELLING ABOUT PAIN, STATES NORCO 5-325 IS NOT WORKING FOR HER PAIN. MD NOTIFIED, WITH NEW ORDERS TO CHANGE HER NORCO 5-325 TO NORCO 10-325 1 TAB Q4H PRN, AND PYRIDIUM 100MH PO Q8H PRN. ORDERS INPUTTED AND WILL BE CARRIED OUT. PT ALSO EXHIBITING ANXIETY. MD MADE AWARE. WILL CONTINUE TO MONITOR. Addendum: 11/26/20 at 1320 by TONG VIZCAINO RN PT'S PAIN AND NAUSEA RESOLVED. PT OBSERVED QUIETLY SLEEPING.
[2020-11-26] MEDS ORDERED: AMLODIPINE BESYLATE 5 MG TABLET PO SCH (09:00)
[2020-11-26] MEDS ORDERED: HYDROCODONE/APAP 5/325MG TABLET PO STA (09:25)
[2020-11-26] MEDS: PHENAZOPYRIDINE HCL 200 MG TABLET PO PRN ×2 (09:53→23:14)
--- NOTE | 2020-11-26 09:53 | NUR ---
MS YAZMIN NOTE: PYRIDIUM PT C/O BURNING SENSATION IN URINE. PYRIDIUM 100MG PO Q8H PRN ADMINISTERED. MS ALSO ORDERED NORCO 5-325 1 TAB PO ONCE NOW, ADMINISTERED AND CARRIED OUT. WILL CONTINUE TO MONITOR. Addendum: 11/26/20 at 1320 by TONG VIZCAINO RN PT'S PAIN RESOLVED, RATED 0/10.
[2020-11-26] MEDS ORDERED: AMLODIPINE BESYLATE 5 MG TABLET PO ONE (12:00)
[2020-11-26] MEDS: ENSURE ENLIVE 237 ML LIQUID (VANILLA) PO SCH ×2 (13:14→16:12)
[2020-11-26] MEDS: HYDROCODONE/APAP 10/325MG TABLET PO PRN ×2 (13:15→19:53)
--- NOTE | 2020-11-26 13:18 | NUR ---
MS RN NOTE: PAIN PT C/O ACHING LEG PAIN AND BURNING SENSATION IN BLADDER, RATED 7/10. OFFERED AND ADMINISTERED NORCO 10-325 1 TAB PO Q6H PRN AT 1315 PER PT'S REQUEST. WILL CONTINUE TO MONITOR.
[2020-11-26 16:00] VITALS: BP 102/63
[2020-11-26] MEDS ORDERED: CEFTRIAXONE 1 G in IV D5W 50 ML IV SCH (16:00)
--- NOTE | 2020-11-26 16:13 | NUR ---
MS RN NOTE: MED REFUSAL PT REFUSED CELECOXIB DUE AT 1700. EXPLAINED RISKS AND BENEFITS, OFFERED X 3, STILL REFUSED. WILL CONTINUE TO MONITOR.
--- NOTE | 2020-11-26 18:28 | NUR ---
MS RN CLOSING NOTE PT REMAINS AWAKE IN BED AND RESPONSIVE. PT IS A/O X 4, VERBAL, SYRIAC SPEAKING AND ABLE TO MAKE NEEDS KNOWN WITH NO C/O PAIN OR S/SX OF ACUTE DISTRESS AT THIS TIME. PT IS ON ROOM AIR WITH ON S/SX OF RESPIRATORY DISTRESS OR SOB NOTED AT THIS TIME. PT'S IV ACCESS IS ON LEFT FOREARM G#18, PATENT, INTACT AND FLUSHING WELL, RUNNING NS AT 50 ML/HR WITH NO S/SX OF INFECTION, INFILTRATION OR IRRITATION. ALL CARE, NEEDS, MEDICATIONS AND TREATMENTS GIVEN ORDERED. SAFETY MEASURES MAINTAINED: BED IN LOWEST POSITION AND LOCKED WITH BOTH UPPER SIDE RAILS UP X 2. CALL LIGHT PLACED WITHIN REACH. WILL ENDORSE TO TRAFFIC RATE COMPUTER NURSE.
--- NOTE | 2020-11-26 19:39 | NUR ---
RN NOTES PT REMAINS AWAKE IN BED AND RESPONSIVE. PT IS A/O X 4, VERBAL, DANISH SPEAKING AND ABLE TO MAKE NEEDS KNOWN WITH NO C/O PAIN OR S/SX OF ACUTE DISTRESS AT THIS TIME. PT IS ON ROOM AIR WITH ON S/SX OF RESPIRATORY DISTRESS OR SOB NOTED AT THIS TIME. PT'S IV ACCESS IS ON LEFT FOREARM G#18, PATENT, INTACT AND FLUSHING WELL, RUNNING NS AT 50 ML/HR WITH NO S/SX OF INFECTION, INFILTRATION OR IRRITATION. ALL CARE, NEEDS, MEDICATIONS AND TREATMENTS GIVEN ORDERED. SAFETY MEASURES MAINTAINED: BED IN LOWEST POSITION AND LOCKED WITH BOTH UPPER SIDE RAILS UP X 2. CALL LIGHT PLACED WITHIN REACH. WILL CONTINUE TO MONITOR.
[2020-11-26 20:00] VITALS: BP 124/69
[2020-11-26] MEDS: MIRTAZAPINE 15 MG TABLET PO SCH (22:48)
[2020-11-26] MEDS: SENNOSIDES 8.6 MG TABLET PO SCH (22:48)
[2020-11-27] MEDS: HYDROCODONE/APAP 10/325MG TABLET PO PRN ×4 (00:02→16:15)
[2020-11-27 06:09] LABS: CALCIUM, SERUM 7.7 mg/dL (8.5-10.1); CREATININE 0.8 mg/dL (0.6-1.3); MAGNESIUM 2.3 mg/dL (1.8-2.4); PHOSPHORUS 3.4 mg/dL (2.5-4.9); POTASSIUM 3.7 mmol/L (3.5-5.1)
[2020-11-27 06:21] LABS: BASOPHILS % (AUTO) 0.7 % (0.0-2.0); HEMATOCRIT 39 % (33-45); HEMOGLOBIN 12.3 g/dL (11.5-14.8); LYMPHOCYTES # (AUTO) 1.9 /CMM (0.8-4.8); LYMPHOCYTES % (AUTO) 38.4 % (20.0-44.0); MEAN CORPUSCULAR HGB CONC 32 g/dl (31.0-36.0); MEAN CORPUSCULAR VOLUME 75 fL (82-100); MONOCYTES # (AUTO) 0.4 /CMM (0.1-1.30); MONOCYTES % (AUTO) 8.4 % (2.0-12.0); NEUTROPHILS # (AUTO) 2.5 /CMM (1.8-8.9); NEUTROPHILS % (AUTO) 50.5 % (43.0-81.0); PLATELET COUNT (AUTO) 171 /CMM (150-450); RED BLOOD CELL COUNT(AUTO) 5.18 MIL/uL (4.0-5.2); WHITE BLOOD COUNT (AUTO) 4.9 K/uL (4.3-11.0)
--- NOTE | 2020-11-27 06:44 | NUR ---
RN NOTES PT REMAINS AWAKE IN BED AND RESPONSIVE. PT IS A/O X 4, VERBAL, KINYARWANDA SPEAKING AND ABLE TO MAKE NEEDS KNOWN WITH NO C/O PAIN OR S/SX OF ACUTE DISTRESS AT THIS TIME. PT IS ON ROOM AIR WITH ON S/SX OF RESPIRATORY DISTRESS OR SOB NOTED AT THIS TIME. PT'S IV ACCESS IS ON LEFT FOREARM G#18, PATENT, INTACT AND FLUSHING WELL, RUNNING NS AT 50 ML/HR WITH NO S/SX OF INFECTION, INFILTRATION OR IRRITATION. ALL CARE, NEEDS, MEDICATIONS AND TREATMENTS GIVEN ORDERED. SAFETY MEASURES MAINTAINED: BED IN LOWEST POSITION AND LOCKED WITH BOTH UPPER SIDE RAILS UP X 2. CALL LIGHT PLACED WITHIN REACH. WILL ENDORSE CARE TO DAY SHIFT.
--- NOTE | 2020-11-27 07:38 | NUR ---
MSRN OPENING NOTE PT REMAINS AWAKE IN BED AND RESPONSIVE. PT IS A/O X 4, VERBAL, KHMER SPEAKING AND ABLE TO MAKE NEEDS KNOWN WITH NO C/O PAIN OR S/SX OF ACUTE DISTRESS AT THIS TIME. PT IS ON ROOM AIR WITH ON S/SX OF RESPIRATORY DISTRESS OR SOB NOTED AT THIS TIME. PT'S IV ACCESS IS ON LEFT FOREARM G#18, PATENT, INTACT AND FLUSHING WELL, RUNNING NS AT 50 ML/HR WITH NO S/SX OF INFECTION, INFILTRATION OR IRRITATION. ALL CARE, NEEDS, MEDICATIONS AND TREATMENTS GIVEN ORDERED. SAFETY MEASURES MAINTAINED: BED IN LOWEST POSITION AND LOCKED WITH BOTH UPPER SIDE RAILS UP X 2. CALL LIGHT PLACED WITHIN REACH.
[2020-11-27] MEDS: DOCUSATE SODIUM 100 MG CAPSULE PO SCH ×2 (08:37→16:29)
[2020-11-27] MEDS: CELECOXIB 100 MG CAPSULE PO SCH ×2 (08:37→16:28)
[2020-11-27] MEDS: CARBIDOPA/LEVODOPA 25/250 MG 1 UDTAB PO SCH ×3 (08:38→16:29)
[2020-11-27] MEDS: TOPIRAMATE 25 MG TABLET PO SCH (08:38)
[2020-11-27] MEDS: GABAPENTIN 100 MG CAPSULE PO SCH ×3 (08:39→16:28)
[2020-11-27] MEDS: HYDROCORTISONE 5 MG TABLET PO SCH ×2 (08:44→16:29)
[2020-11-27] MEDS: PANTOPRAZOLE 40 MG TABLET.DR PO SCH (08:44)
[2020-11-27] MEDS: ENSURE ENLIVE 237 ML LIQUID (VANILLA) PO SCH ×3 (08:44→16:20)
[2020-11-27] MEDS ORDERED: AMLODIPINE BESYLATE 5 MG TABLET PO SCH (09:00)
[2020-11-27] MEDS ORDERED: BISACODYL SUPP (10 MG) 10 MG/SUPP.RECT SUPP.RECT RC PRN (10:30)
[2020-11-27 12:24] VITALS: BP 154/70
[2020-11-27] MEDS ORDERED: BENAZEPRIL HCL 10 MG TABLET PO SCH (13:00)
[2020-11-27] MEDS ORDERED: AMLO-212 PO (13:14)
[2020-11-27] MEDS ORDERED: CEPH500C2 PO (13:14)
[2020-11-27] MEDS ORDERED: BENA10TA74 PO (13:14)
--- NOTE | 2020-11-27 17:07 | NUR ---
MS DEBARKER OPERATOR NOTE PATIENT LEFT HOSPITAL AT 1700 PICKED UP BY SON IN PRIVATE CAR, ALL BELONGINGS ACCOUNTED FOR, IV CATHETER REMOVED, RESIDENT ESCORTED DOWN IN OWN WHEELCHAIR. BELONGING FORM AND DISCHARGE SUMMARY SIGNED BY TWO NURSES PATIENT IS UNABLE TO SIGM HERSELF. STABLE UPON DISCHARGE, DISCHARGE VITALS NORMAL FOR PATIENT
[2020-11-28] MEDS ORDERED: ERGOCALCIFEROL (VITAMIN D 2) 50,000 UNIT CAPSULE PO SCH (07:00)
== END 2020-11-27 17:00 | disposition home or self-care (01) | DRG 689 ==
LOC: ER 12:56 → TELE 19:59 → MED 21:17
PROVIDERS: ADMIT Nurse Practitioner Acute Care; ATTEND Nurse Practitioner Acute Care
DX: N39.0 Urinary tract infection, site not specified (principal); N17.0 Acute kidney failure with tubular necrosis; D68.69 Other thrombophilia; E44.1 Mild protein-calorie malnutrition; Z68.1 Body mass index [BMI] 19.9 or less, adult; I16.0 Hypertensive urgency; K21.9 Gastro-esophageal reflux disease without esophagitis; I11.9 Hypertensive heart disease without heart failure; Z90.710 Acquired absence of both cervix and uterus; G20 Parkinson's disease; G89.4 Chronic pain syndrome; E88.09 Other disorders of plasma-protein metabolism, not elsewhere classified; F02.80 Dementia in other diseases classified elsewhere, unspecified severity, without behavioral disturbance, psychotic disturbance, mood disturbance, and anxiety; Z74.09 Other reduced mobility; Z20.822 Contact with and (suspected) exposure to COVID-19
CPT/HCPCS: 36415; 71045-TC; 80048-TC; 80061-TC; 80076-TC; 81001; 83735-TC; 84100-TC; 85025-TC; 85730-TC; 87081-TC; 87086-TC; C9803; G0378; J0696; J1200; J2270; J2405; J7030; J7060

== ENCOUNTER 2020-12-01 12:01 | Outpatient (CLI) | payer MEDICARE, OTHER ==
[~2020-12-01 12:01] MED LIST changes: +BENA10TA74 PO; +CEPH500C2 PO; -FLUO10CA29 PO; -HYDR-3973 PO; +MIRT-121 PO; +TOPI25TA49 PO; -TRAZ-252 PO
== END 2020-12-01 23:59 | disposition home or self-care (01) ==
LOC: MSC 12:01
PROVIDERS: ATTEND Internal Medicine
DX: R79.89 Other specified abnormal findings of blood chemistry (principal); K12.1 Other forms of stomatitis; G62.9 Polyneuropathy, unspecified; R42 Dizziness and giddiness; I10 Essential (primary) hypertension; E27.40 Unspecified adrenocortical insufficiency; K29.70 Gastritis, unspecified, without bleeding; G20 Parkinson's disease; Z79.899 Other long term (current) drug therapy

== ENCOUNTER 2021-06-12 11:13 | Outpatient (CLI) | payer MEDICARE, OTHER ==
[~2021-06-12 11:13] MED LIST changes: -ERGO500014 MT; +ERGO500093 MT; +NALO25TA PO; -NALO25TA4 PO; -OMEP40CA13 PO; +OMEP40CA21 PO
== END 2021-06-12 23:59 | disposition home or self-care (01) ==
LOC: MSC 11:13
PROVIDERS: ATTEND Internal Medicine
DX: F41.9 Anxiety disorder, unspecified (principal); G89.4 Chronic pain syndrome; M19.90 Unspecified osteoarthritis, unspecified site; R79.89 Other specified abnormal findings of blood chemistry; R42 Dizziness and giddiness; I10 Essential (primary) hypertension; E27.40 Unspecified adrenocortical insufficiency; K29.70 Gastritis, unspecified, without bleeding; G20 Parkinson's disease; G62.9 Polyneuropathy, unspecified; Z79.52 Long term (current) use of systemic steroids; Z79.891 Long term (current) use of opiate analgesic; Z79.899 Other long term (current) drug therapy

== ENCOUNTER 2021-07-04 13:58 | Emergency (ER) | payer MEDICARE, OTHER ==
[~2021-07-04] VITALS: Ht 162.6 cm; Wt 39.5 kg
--- NOTE | 2021-07-04 14:30 | NUR ---
BIB FAMILY FOR BODY ACHES, DYSURIA SINCE YESTERDAY. RATES PAIN 8/10. WILL CONTINUE TO MONITOR THE PATIENT.
--- NOTE | 2021-07-04 14:34 | NUR ---
SALINE LOCK ESTABLISHED, BLOOD DRAWN AND SENT TO LAB
[2021-07-04 14:49] LABS: BASOPHILS % (AUTO) 0.4 % (0.0-2.0); EOSINOPHILS % (AUTO) 0.6 % (0.0-6.0); HEMATOCRIT 37 % (33-45); HEMOGLOBIN 11.7 g/dL (11.5-14.8); LYMPHOCYTES # (AUTO) 1.2 K/uL (0.8-4.8); LYMPHOCYTES % (AUTO) 15.2 % (20.0-44.0); MEAN CORPUSCULAR HGB CONC 32 g/dl (31.0-36.0); MEAN CORPUSCULAR VOLUME 76 fL (82-100); MONOCYTES # (AUTO) 0.7 K/uL (0.1-1.30); MONOCYTES % (AUTO) 8.7 % (2.0-12.0); NEUTROPHILS # (AUTO) 5.8 K/uL (1.8-8.9); NEUTROPHILS % (AUTO) 75.1 % (43.0-81.0); PLATELET COUNT (AUTO) 215 K/uL (150-450); RED BLOOD CELL COUNT(AUTO) 4.83 MIL/uL (4.0-5.2); WHITE BLOOD COUNT (AUTO) 7.7 K/uL (4.3-11.0)
--- NOTE | 2021-07-04 14:51 | NUR ---
URINE COLLECTED AND SENT TO THE LAB
[2021-07-04 15:04] LABS: CARBON DIOXIDE 28 mmol/L (21-32); CHLORIDE 103 mmol/L (98-107); CREATININE 1.1 mg/dL (0.6-1.3); GLUCOSE 108 mg/dL (74-106); POTASSIUM 4.4 mmol/L (3.5-5.1); SODIUM SERUM 136 mmol/L (136-145); UREA NITROGEN, BLOOD 25 mg/dL (7-18)
--- NOTE | 2021-07-04 15:04 | NUR ---
THE PATIENT IS TAKEN TO CT
[2021-07-04 15:08] LABS: ALBUMIN 3.2 g/dL (3.4-5.0); ALKALINE PHOSPHATASE 61 U/L (46-116); ASPARTATE AMINOTRANSFERASE 19 U/L (15-37); BILIRUBIN,DIRECT 0.1 mg/dL (0.0-0.2); BILIRUBIN,TOTAL 0.3 mg/dL (0.2-1.0); LIPASE 143 U/L (73-393); TOTAL PROTEIN, SERUM 6.2 g/dL (6.4-8.2)
[2021-07-04 15:15] LABS: BILIRUBIN,URINE SMALL (NEGATIVE); COLOR,URINE DARK YELLOW (YELLOW); PH,URINE 6.5 (5.0-8.0); PROTEIN,URINE 30 mg/dl (NEGATIVE); UGLUCOSE Negative (NEGATIVE)
[2021-07-04 15:16] LABS: LEUKOCYTE ESTERASE ,URINE Large (NEGATIVE); NITRITE, URINE Positive (NEGATIVE)
[2021-07-04 15:26] LABS: ALANINE AMINOTRANSFERASE 7 U/L (12-78)
[2021-07-04 15:33] LABS: BACTERIA,URINE Many /HPF (None Seen); RBC,URINE 0-4 /HPF (0-2); SQUAMOUS EPITHELIAL CELL,UR Moderate /HPF (None Seen); URINE AMORPHOUS URATE Many /HPF (None Seen); WBC,URINE 81-100 /HPF (0-3)
[2021-07-04] MEDS ORDERED: CEFTRIAXONE 1 G in IV D5W 50 ML IV ONE (16:00)
[2021-07-04] MEDS ORDERED: FAMOTIDINE/PF INJ 20 MG/2 ML VIAL IV ONE ×2 (16:00→16:17)
[2021-07-04] MEDS ORDERED: MORPHINE SULFATE INJ 2 MG/ML DISP.SYRIN ONE (16:29)
[2021-07-04] MEDS ORDERED: MORPHINE SULFATE INJ 2 MG/ML DISP.SYRIN IV ONE (16:30)
[2021-07-04] MEDS ORDERED: IV NS 0.9% 1,000 ML BAG IV ONE (16:30)
--- NOTE | 2021-07-04 16:38 | NUR ---
DARRON LACEY [phone] WILL WAREHOUSE PRODUCTION WORKER THE PATIENT IN 20MINS
[2021-07-04] MEDS ORDERED: CEPH500C2 PO (17:29)
[2021-07-04] MEDS ORDERED: POLY17PO4 PO (17:29)
--- NOTE | 2021-07-04 17:39 | NUR ---
The alert and oriented x3. In room air and denies SOB. Respiratrion regular and unlabored. Denies pain. IV removed. Catheter intact and site benign. Pressure and 4x4 applied to site. No bleeding noted.Patient discharged to home in stable condition. Written and verbal after care instructions given. Patient verbalizes understanding of instruction. The patient is picked up by son.
[2021-07-04 17:41] VITALS: BP 141/75
== END 2021-07-04 17:42 | disposition home or self-care (01) ==
LOC: ER 14:04
DX: N39.0 Urinary tract infection, site not specified (principal); R10.10 Upper abdominal pain, unspecified; K59.00 Constipation, unspecified; N28.1 Cyst of kidney, acquired; R94.31 Abnormal electrocardiogram [ECG] [EKG]; R94.8 Abnormal results of function studies of other organs and systems; G20 Parkinson's disease; I10 Essential (primary) hypertension; K21.9 Gastro-esophageal reflux disease without esophagitis; G89.29 Other chronic pain; Z79.899 Other long term (current) drug therapy
CPT/HCPCS: 36415; 70450; 74176; 80048; 80076; 81001; 83690; 84484; 85025; 87077; 87086; 87186; 93005; 96365; 96375; 99285; J0696; J2270; J3490; J7040; J7060